=== PATIENT | female | born 1970 | race Caucasian/White ===

== ENCOUNTER → 2018-09-15 | Outpatient (CLI) | payer BC ==
[~2018-09-15] MED LIST: LVT.1T PO
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
--- NOTE | 2018-09-15 19:17 | Diagnostic Imaging Report ---
INDICATION: Routine screening. No prior mammograms are available for comparison. This is a baseline study. 2-D and 3-D bilateral screening mammography was performed with CAD. The current study was also evaluated with a Computer Aided Detection (CAD) system. Scattered fibroglandular densities are identified bilaterally. No mass or malignant-appearing microcalcifications are seen. Axillae are unremarkable. IMPRESSION: No mammographic features suspicious for malignancy are identified. ACR BI-RADS Category 1: Negative. Result letter will be mailed to the patient. Note: At least 10% of breast cancer is not imaged by mammography. Dictated by: Dictated on workstation # [id number]
== END ==
LOC: RAD 09:40
PROVIDERS: ATTEND Obstetrics & Gynecology
DX: Z12.31 Encounter for screening mammogram for malignant neoplasm of breast (principal); E80.6 Other disorders of bilirubin metabolism; Z90.49 Acquired absence of other specified parts of digestive tract; Z87.828 Personal history of other (healed) physical injury and trauma
CPT/HCPCS: 76705; 77067

== ENCOUNTER → 2018-09-15 | Outpatient (CLI) | payer BC | LOC: RAD 09:36 | PROVIDERS: ATTEND Nurse Practitioner Family | DX: E80.6 Other disorders of bilirubin metabolism (principal); Z87.828 Personal history of other (healed) physical injury and trauma; Z53.8 Procedure and treatment not carried out for other reasons ==

== ENCOUNTER 2018-10-26 11:26 | Outpatient (CLI) | payer BC ==
[~2018-10-26] VITALS: Ht 166.4 cm; Wt 85.7 kg
[2018-10-26 11:35] VITALS: BP 114/73
[2018-10-26 12:11] LABS: BASOPHILS % (AUTO) 1 % (0-10); EOSINOPHILS # (AUTO) 0.2 10^3/uL (0.0-0.3); EOSINOPHILS % (AUTO) 3 % (0-10); HEMATOCRIT 38 % (35-52); LYMPHOCYTES # (AUTO) 1.5 X 10^3 (1.0-4.0); LYMPHOCYTES % (AUTO) 23 % (12-44); MEAN CORPUSCULAR HEMOGLOBIN 30 PG (25-34); MEAN CORPUSCULAR HGB CONC 35 G/DL (32-36); MEAN CORPUSCULAR VOLUME 88 FL (80-99); MEAN PLATELET VOLUME 10.7 FL (7.4-10.4); MONOCYTES # (AUTO) 0.4 X 10^3 (0.0-1.0); MONOCYTES % (AUTO) 6 % (0-12); NEUTROPHILS # (AUTO) 4.6 X 10^3 (1.8-7.8); NEUTROPHILS % (AUTO) 67 % (42-75); PLATELET COUNT 271 10^3/uL (130-400); RED CELL DISTRIBUTION WIDTH 12.7 % (10.0-14.5); WHITE BLOOD COUNT 6.8 10^3/uL (4.3-11.0)
[2018-10-26] MEDS ORDERED: LEVO88TA54 PO (13:16)
[2018-10-26] MEDS ORDERED: METO-387 PO (13:16)
== END 2018-10-26 12:00 | disposition home or self-care (01) ==
LOC: PREOP 11:26
PROVIDERS: ATTEND Obstetrics & Gynecology
DX: Z01.818 Encounter for other preprocedural examination (principal); N39.3 Stress incontinence (female) (male); D64.9 Anemia, unspecified; N94.6 Dysmenorrhea, unspecified; N81.4 Uterovaginal prolapse, unspecified; R11.2 Nausea with vomiting, unspecified; Z11.2 Encounter for screening for other bacterial diseases
CPT/HCPCS: 36415; 85025; 86850; 86900; 86901; 87081

== ENCOUNTER → 2019-05-18 | Outpatient (CLI) | payer BC ==
[~2019-05-18] MED LIST changes: +DOCU-143 PO; +ESTR1TAB24 PO; +IBUP-1780 PO; +LEVO88TA54 PO; +METO-387 PO; +OXC5T PO; +oxycodone PO
--- NOTE | 2019-05-18 10:23 | Diagnostic Imaging Report ---
INDICATION: Chest pain. PA and lateral chest. FINDINGS: Heart size and pulmonary vascularity are normal. Lungs are clear. There are no effusions or pneumothoraces. IMPRESSION: Negative chest. Dictated by: Dictated on workstation # [id number]
== END ==
LOC: RAD 09:23
PROVIDERS: ATTEND Nurse Practitioner Family
DX: R07.9 Chest pain, unspecified (principal); Z87.891 Personal history of nicotine dependence
CPT/HCPCS: 71046

== ENCOUNTER 2019-05-25 10:00 | Outpatient (RCR) | payer BC ==
[~2019-05-25 10:00] MED LIST changes: -METO-387 PO; +MTP25TSR PO
== END 2019-08-23 | disposition home or self-care (01) ==
LOC: CARD 10:00
PROVIDERS: ATTEND Nurse Practitioner Family
DX: R07.9 Chest pain, unspecified (principal); R00.0 Tachycardia, unspecified
CPT/HCPCS: 93225; 93226

== ENCOUNTER → 2019-06-15 | Outpatient (CLI) | payer BC | LOC: CARD 13:03 | PROVIDERS: ATTEND Internal Medicine Cardiovascular Disease | DX: I47.1 Supraventricular tachycardia (principal); R00.2 Palpitations; R42 Dizziness and giddiness; R07.89 Other chest pain | CPT/HCPCS: 93306 ==

== ENCOUNTER → 2019-07-04 | Outpatient (CLI) | payer BC ==
[~2019-07-04] VITALS: Ht 165 cm; Wt 90.0 kg
[~2019-07-04] MED LIST changes: +CATHETER FLUSH 10 ML SYR IV PRN
[2019-07-04 09:59] VITALS: BP 105/75
--- NOTE | 2019-07-04 18:00 | STRESS TEST ---
DATE OF SERVICE: 07/04/2019 EXERCISE MYOVIEW STRESS TEST REFERRING PHYSICIAN: Felicita Lopez MD. Baseline heart rate is 59, baseline blood pressure 104/66. Baseline EKG is sinus rhythm with no ischemic changes. In summary, the patient was injected with 9.78 mCi of technetium-99 Myoview and the resting images were obtained. Then, the patient started exercising with a baseline heart rate, blood pressure and EKG mentioned above. The patient was able to exercise for 6 minutes on standard Memo protocol. With peak exercise level, blood pressure was 147/68. EKG was showing no significant ischemic changes. During recovery, heart rate and blood pressure returned to baseline. The resting and stress images were reviewed and compared in the short axis, horizontal long axis, and vertical long axis views. Review of the images showed good radiotracer uptake with no significant ischemia or infarction on SPECT images. On the gated images, the left ventricle appeared to be normal size with normal contractility. Calculated ejection fraction is 55%. CONCLUSION: 1. Good exercise tolerance for a total of 6 minutes on standard Memo protocol, 7.1 METs, achieving 87% of maximum expected heart rate. 2. Appropriate heart rate and blood pressure response to exercise returned to baseline during recovery. 3. No significant EKG changes with exercise. 4. No significant ischemia or infarction on SPECT images. 5. Normal left ventricular size with normal contractility. Calculated ejection fraction is 55%. Job ID: [id number] DocumentID: [id number] Dictated Date: 07/04/2019 15:34:46 Business Management Associate Date: 07/04/2019 18:00:07 Dictated By: KADY GOLDSTEIN MD
== END ==
LOC: CARD 08:44
PROVIDERS: ATTEND Internal Medicine Cardiovascular Disease
DX: R07.89 Other chest pain (principal); I47.1 Supraventricular tachycardia; R00.2 Palpitations; R42 Dizziness and giddiness
CPT/HCPCS: 78452; 93017

== ENCOUNTER 2020-06-18 10:42 | Emergency (ER) | payer BC ==
[~2020-06-18] VITALS: Ht 165 cm; Wt 90.7 kg
[~2020-06-18 10:42] MED LIST changes: +AMOX-358 PO; -CATHETER FLUSH 10 ML SYR IV PRN; +NAPR500T8 PO; +TRAM-42 PO
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
[2020-06-18 12:09] LABS: BASOPHILS % (AUTO) 1 % (0-10); EOSINOPHILS # (AUTO) 0.3 10^3/uL (0.0-0.3); EOSINOPHILS % (AUTO) 6 % (0-10); HEMATOCRIT 37 % (35-52); HEMOGLOBIN 12.2 g/dL (11.5-16.0); LYMPHOCYTES # (AUTO) 1.3 10^3/uL (1.0-4.0); LYMPHOCYTES % (AUTO) 29 % (12-44); MEAN CORPUSCULAR HEMOGLOBIN 30 pg (25-34); MEAN CORPUSCULAR HGB CONC 33 g/dL (32-36); MEAN CORPUSCULAR VOLUME 90 fL (80-99); MEAN PLATELET VOLUME 10.5 fL (9.0-12.2); MONOCYTES # (AUTO) 0.3 10^3/uL (0.0-1.0); MONOCYTES % (AUTO) 7 % (0-12); NEUTROPHILS # (AUTO) 2.7 10^3/uL (1.8-7.8); NEUTROPHILS % (AUTO) 58 % (42-75); PLATELET COUNT 209 10^3/uL (130-400); WHITE BLOOD COUNT 4.6 10^3/uL (4.3-11.0)
[2020-06-18 12:15] LABS: INR 1.1 (0.8-1.4); PROTHROMBIN TIME PATIENT 14.3 SEC (12.2-14.7)
[2020-06-18 12:19] LABS: ALBUMIN 3.6 GM/DL (3.2-4.5); CHLORIDE 108 MMOL/L (98-107); SODIUM 142 MMOL/L (135-145)
[2020-06-18 12:21] LABS: CALCIUM 8.5 MG/DL (8.5-10.1)
[2020-06-18 12:22] LABS: GLUCOSE 106 MG/DL (70-105); TOTAL PROTEIN 5.7 GM/DL (6.4-8.2)
[2020-06-18 12:23] LABS: BILIRUBIN,TOTAL 2.4 MG/DL (0.1-1.0); CARBON DIOXIDE 29 MMOL/L (21-32)
[2020-06-18 12:25] LABS: ALKALINE PHOSPHATASE 73 U/L (40-136); CREATININE SERUM 0.73 MG/DL (0.60-1.30); GFR ESTIMATED > 60
[2020-06-18 12:26] LABS: BUN/CREATININE RATIO 8
[2020-06-18 12:28] LABS: ALANINE AMINOTRANSFERASE 21 U/L (0-55); MAGNESIUM 2.1 MG/DL (1.6-2.4)
--- NOTE | 2020-06-18 13:20 | Diagnostic Imaging Report ---
INDICATION: Chest pain and headache. TIME OF EXAM: 1:00 PM. COMPARISON: 05/18/2019. FINDINGS: The heart size is normal. The pulmonary vascularity is unremarkable. The lungs are clear. No infiltrate, effusion, or pneumothorax is detected. IMPRESSION: No acute cardiopulmonary process is detected. Dictated by: Dictated on workstation # [id number]
[2020-06-18 13:56] VITALS: BP 116/97
== END 2020-06-18 13:56 | disposition home or self-care (01) ==
LOC: EDUNIT# 10:42 → ER 10:44
DX: R07.9 Chest pain, unspecified (principal); K21.9 Gastro-esophageal reflux disease without esophagitis; E03.9 Hypothyroidism, unspecified; Z20.822 Contact with and (suspected) exposure to COVID-19; Z88.6 Allergy status to analgesic agent; Z88.1 Allergy status to other antibiotic agents; Z87.891 Personal history of nicotine dependence; Z82.49 Family history of ischemic heart disease and other diseases of the circulatory system; Z83.3 Family history of diabetes mellitus; Z80.42 Family history of malignant neoplasm of prostate; Z79.890 Hormone replacement therapy
CPT/HCPCS: 71045; 80053; 83735; 83874; 84484; 85025; 85379; 85610; 85730; 87804; 93041; U0002; 36415; 87635; 93005

== ENCOUNTER → 2021-03-06 | Outpatient (CLI) | payer BC ==
--- NOTE | 2021-03-06 11:23 | Diagnostic Imaging Report ---
PROCEDURE: US Thyroid. TECHNIQUE: Multiple real-time grayscale images were obtained of the thyroid in various projections. INDICATION: Hypothyroidism The previous soft tissue ultrasound exam of the neck performed on 02/27/2016 noted that the thyroid gland had a mildly heterogeneous appearance. There is no discrete solid or cystic nodule visualized however. On this exam the thyroid gland is somewhat small with the right lobe measuring 3.8 x 1.5 x 1.2 cm and the left lobe estimated to 2.7 x 0.8 x 1.0 cm (normal gland size 4-5 x 2x2 cm or less). As on the prior exam. The texture of each lobe of the thyroid is heterogeneous. There is still no discrete solid or cystic mass identified however. IMPRESSION: 1. The thyroid gland is somewhat small and has a heterogeneous appearance. There is no discrete solid or cystic mass noted. 2. If further evaluation of thyroid function is desired, then a nuclear medicine thyroid scan with uptake would be recommended. Dictated by: Dictated on workstation # [id number]
== END ==
LOC: RAD 08:00
PROVIDERS: ATTEND Nurse Practitioner Family
DX: E03.9 Hypothyroidism, unspecified (principal); R13.10 Dysphagia, unspecified
CPT/HCPCS: 76536

== ENCOUNTER 2021-04-09 05:34 | Outpatient (RCR) | payer BC ==
[~2021-04-09] VITALS: Ht 165.1 cm; Wt 96.1 kg
== END 2021-04-09 09:15 | disposition home or self-care (01) ==
LOC: PREOP 05:34
PROVIDERS: ATTEND Surgery
DX: Z01.812 Encounter for preprocedural laboratory examination (principal); Z12.11 Encounter for screening for malignant neoplasm of colon; R13.10 Dysphagia, unspecified; Z20.822 Contact with and (suspected) exposure to COVID-19
CPT/HCPCS: 87635

== ENCOUNTER → 2021-04-13 | Day surgery (SDC) | payer BC ==
[~2021-04-13] VITALS: Ht 165.1 cm; Wt 96.1 kg
[~2021-04-13] MED LIST changes: +HURRICAINE EXT TUBE (BENZOCAINE) XX PRN; +LACTATED RINGERS 1,000 ML IV ONE; +LACTATED RINGERS 1,000 ML IV STA; +PANT40TA2 PO; +PROPOFOL INJECTION 50 ML IV ONE; +SUCR1TAB36 PO
--- OUTSIDE RECORDS SUMMARY | 2021-04-13 07:16 | XMS REPORT | CCD ---
Author Author Margaret Neal Organization Felicita Lopez MD, [facility] Address [facility] [place] [address] Phone Care Team Providers Care Collar Setter Overlock Name Role Phone Felicita Lopez PP Unavailable CCM Unavailable Summary Purpose Interface Exchange Insurance Providers Payer name Policy type / Coverage type Covered constitution party ID Effective Begin Date Effective End Date [facility] [id number] Unknown Family history Mother Diagnosis Age At Onset Hypertension Unknown Hyperlipidemia Unknown Brother Diagnosis Age At Onset Hyperlipidemia Unknown Hypertension Unknown Father Diagnosis Age At Onset Diabetes mellitus Type 2 Unknown Hypertension Unknown Hyperlipidemia Unknown Cancer Unknown Social History Social History Element Codes Description Effective Dates Marital status Unknown Merrel 09/04/2018 Number of children Unknown 3 09/04/2018 Employment Unknown 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 09/04/[address]: 7809233 Former smoker 02-28-2014 09/04/[address]: 231826904 Never drinks alcohol 2018 Allergies, Adverse Reactions, Alerts Substance Reaction Codes Entered Date Inactivated Date Status doxycycline hyclate rash Unknown 09/04/2018 No Inactive Date Active Problems Condition Codes Effective Dates Condition Status Hypothyroidism, unspecified ICD-10: E03.9 ICD-9: 244.9 09/04/2018 Active Cough ICD-10: R05 ICD-9: 786.2 12/15/2020 Active COVID-19 ICD-10: U07.1 ICD-9: 079.89 12/15/2020 Active Dysphagia, oral phase ICD-10: R13.11 ICD-9: 787.21 07/20/2019 Active Other specified hypothyroidism ICD-10: E03.8 ICD-9: 244.8 11/12/2020 Active Elevated liver enzymes ICD-10: R74.8 ICD-9: 790.5 11/05/2020 Active Rash and other nonspecific skin eruption ICD-10: R21 ICD-9: 782.1 09/04/2018 Active Chest pain made worse by breathing ICD-10: R07.1 ICD-9: 786.52 05/18/2019 Active Iliotibial band syndrome, right leg ICD-10: M76.31 ICD-9: 728.89 05/04/2019 Active Well adult health check ICD-10: Z00.00 ICD-9: V70.0 05/04/2019 Active Excessive and frequent menstruation with regular cycle ICD-10: N92.0 ICD-9: 626.2 09/04/2018 Active Unspecified jaundice ICD-10: R17 ICD-9: 277.4 09/04/2018 Active Hypothryroidism Unknown 09/04/2018 Active Melena ICD-10: K92.1 ICD-9: 578.1 09/04/2018 Active Medications Medication Codes Instructions Start Date Stop Date Status Fill Instructions Ventolin HFA 90 mcg/actuation aerosol inhaler RxNorm: 053523 Take 1-2 Puff(s) Inhalation Every 4 hrs as needed 12/15/2020 No Stop Date Active prednisone 20 mg tablet RxNorm: 713963 Take 1 Tablet(s) Oral tw o times a day 12/15/2020 12/19/2020 Inactive levothyroxine 88 mcg tablet RxNorm: 461503 Take 1 Tablet(s) Ora l every day 11/12/2020 11/06/2021 Active levothyroxine 100 mcg tablet RxNorm: 202003 Take 1 tablet by mo [place] once daily 05/12/2020 02/19/2021 Inactive levothyroxine 100 mcg tablet RxNorm: 550031 1 Tablet(s) Oral ev janie day 01/07/2020 05/06/2020 Inactive ketoconazole 2 % topical cream RxNorm: 428952 1 Applica tion Topical two times a day 12/10/2019 No Stop Date Active levothyroxine 100 mcg tablet RxNorm: 203096 1 Tablet(s) Oral ev janie day 05/18/2019 11/14/2019 Inactive prednisone 20 mg tablet RxNorm: 006324 2 Tablet(s) Oral every day 1 07/19/2018 05/23/2019 Inactive betamethasone, augmented 0.05 % topical cream RxNorm: 618731 1 Application TOP BID 09/04/2018 09/17/2018 Inactive Kenalog 40 mg/mL suspension for injection RxNorm: 5627867 Millil iter(s) Inj 09/04/2018 09/04/2018 Inactive metoprolol succinate ER 25 mg tablet,extended release 24 hr RxNorm: 683243 1 Tablet(s) PO daily as needed 09/04/2018 Active Advil 200 mg tablet RxNorm: 233354 1 Tablet(s) PO BID 09/04/2018 Active levothyroxine 88 mcg tablet RxNorm: 809019 1 Tablet(s) PO daily 05/17/2019 Inactive Medication Administered Medication Codes Instructions Start Date Status Kenalog 40 mg/mL suspension for injection RxNorm: 9245339 Millilite r 09/04/2018 No longer Active Immunizations Vaccine Codes Date Status Covid-19 CVX: 213 11/07/2020 Results Observation Observation Code Item Item Code Result Date S ervice Location Cbc With Differential Ord2 WBC 4.11 K/ul 02/21/20 21 Unknown Cbc With Differential Ord2 RBC 4.54 M/ul 02/21/20 21 Unknown Cbc With Differential Ord2 HGB 13.3 g/dl 02/21/20 21 Unknown Cbc With Differential Ord2 Neut% 53.5 % 02/21/20 21 Unknown Cbc With Differential Ord2 HCT 41.1 % 02/21/20 21 Unknown Cbc With Differential Ord2 Lymph% 32.6 % 02/21/20 21 Unknown Cbc With Differential Ord2 MCV 90.5 fl 02/21/20 21 Unknown Cbc With Differential Ord2 Callahan% 6.1 % 02/21/20 21 Unknown Cbc With Differential Ord2 MCH 29.3 pg 02/21/20 21 Unknown Cbc With Differential Ord2 Eos% 7.3 % 02/21/20 21 Unknown Cbc With Differential Ord2 MCHC 32.4 pg 02/21/20 21 Unknown Cbc With Differential Ord2 Baso% 0.5 % 02/21/20 21 Unknown Cbc With Differential Ord2 PLT 111 K/ul 02/21/20 21 Unknown Cbc With Differential Ord2 Neut ABS# 2.20 K/ul 02/21/20 21 Unknown Cbc With Differential Ord2 RDW 12.9 % 02/21/20 21 Unknown Cbc With Differential Ord2 Lymph ABS# 1.34 K/ul 021 Unknown Cbc With Differential Ord2 Callahan ABS# 0.3 K/ul 02/21/20 21 Unknown Cbc With Differential Ord2 Eos ABS# 0.3 K/ul 02/21/20 21 Unknown Cbc With Differential Ord2 Baso ABS# 0.0 K/ul 02/21/20 21 Unknown Lipid Ord30 CHOL 184 mg/dL 02/20/2021 Unknown Lipid Ord30 HDL 49.0 mg/dl 02/20/2021 Unknown Lipid Ord30 TRIG 90 mg/dL 02/20/2021 Unknown Lipid Ord30 LDL 117 mg/dL 02/20/2021 Unknown Lipid Ord30 C/HDL 3.8 Ratio 02/20/2021 Unknown Comp Metabolic Vlw341 NA 139 mEq/L 02/20/2021 Unkn own Comp Metabolic Cgm661 K 4.1 mEq/L 02/20/2021 Unkn own Comp Metabolic Ron564 CL 108 mEq/L 02/20/2021 Unkn own Comp Metabolic Jso764 CO2 18.0 mEq/L 02/20/2021 Unk nown Comp Metabolic Usw412 ANION GAP 17 02/20/2021 Unkn own Comp Metabolic Htt471 GLUCOSE 108 mg/dL 02/20/2021 Unkn own Comp Metabolic Tnk474 Creat 0.7 mg/dL 02/20/2021 Unkn own Comp Metabolic Nvt431 eGFR 102 ml/min/1.73m2 021 Unknown Comp Metabolic Uec543 BUN 10 mg/dL 02/20/2021 Unkn own Comp Metabolic Acu039 B/C Ratio 15.4 Ratio 02/20/2021 Unk nown Comp Metabolic Huv403 CALCIUM 8.9 mg/dL 02/20/2021 Unkn own Comp Metabolic Wgk145 ALK PHOS 87 U/L 02/20/2021 Unkn own Comp Metabolic Jup964 AST(SGOT) 21 U/L 02/20/2021 Unkn own Comp Metabolic Hqf994 ALT(SGPT) 22 U/L 02/20/2021 Unkn own Comp Metabolic Pwx433 BILI T 1.5 mg/dL 02/20/2021 Unkn own Comp Metabolic Nvn885 ALBUMIN 3.9 g/dL 02/20/2021 Unkn own Comp Metabolic Pek518 TPRO 6.1 g/dL 02/20/2021 Unkn own Comp Metabolic Lgn715 GLOB 2.3 g/dL 02/20/2021 Unkn own Comp Metabolic Kwa859 A/G Ratio 1.7 Ratio 02/20/2021 Unkn own Comp Metabolic Xdw786 Osmo 277 mOsmo 02/20/2021 Unkn own Tsh Ord6 TSH (3rd IS) 0.35 uIU/mL 02/20/2021 Unkn own Free T4 Oxa298 FREE T4 1.04 ng/dL 02/20/2021 Unknown Cbc With Differential Ord2 WBC 5.32 K/ul 11/11/19 21 Unknown Cbc With Differential Ord2 RBC 4.48 M/ul 11/11/19 21 Unknown Cbc With Differential Ord2 HGB 13.4 g/dl 11/11/19 21 Unknown Cbc With Differential Ord2 Neut% 47.8 % 11/11/19 21 Unknown Cbc With Differential Ord2 HCT 39.2 % 11/11/19 21 Unknown Cbc With Differential Ord2 MCV 87.5 fl 11/11/19 21 Unknown Cbc With Differential Ord2 Lymph% 37.0 % 11/11/19 21 Unknown Cbc With Differential Ord2 Callahan% 10.5 % 11/11/19 21 Unknown Cbc With Differential Ord2 MCH 29.9 pg 11/11/19 21 Unknown Cbc With Differential Ord2 MCHC 34.2 pg 11/11/19 21 Unknown Cbc With Differential Ord2 Eos% 3.9 % 11/11/19 21 Unknown Cbc With Differential Ord2 Baso% 0.8 % 11/11/19 21 Unknown Cbc With Differential Ord2 PLT 223 K/ul 11/11/19 21 Unknown Cbc With Differential Ord2 RDW 12.8 % 11/11/19 21 Unknown Cbc With Differential Ord2 Neut ABS# 2.54 K/ul 11/11/19 21 Unknown Cbc With Differential Ord2 Lymph ABS# 1.97 K/ul 021 Unknown Cbc With Differential Ord2 [place]ahan ABS# 0.6 K/ul 11/11/19 21 Unknown Cbc With Differential Ord2 Eos ABS# 0.2 K/ul 11/11/19 21 Unknown Cbc With Differential Ord2 Baso ABS# 0.0 K/ul 11/11/19 21 Unknown Tsh Ord6 TSH (3rd IS) 0.02 uIU/mL 11/10/2020 Unkn own Comp Metabolic Kdy995 NA 137 mEq/L 11/10/2020 Unkn own Comp Metabolic Cfx360 K 3.8 mEq/L 11/10/2020 Unkn own Comp Metabolic Leo326 CL 102 mEq/L 11/10/2020 Unkn own Comp Metabolic Goy795 CO2 30.0 mEq/L 11/10/2020 Unk nown Comp Metabolic Buv342 ANION GAP 9 11/10/2020 Unkn own Comp Metabolic Qya561 GLUCOSE 105 mg/dL 11/10/2020 Unkn own Comp Metabolic Rzy750 Creat 0.7 mg/dL 11/10/2020 Unkn own Comp Metabolic Guz730 eGFR 93 ml/min/1.73m2 11/11/19 21 Unknown Comp Metabolic Ljx848 BUN 12 mg/dL 11/10/2020 Unkn own Comp Metabolic Gud943 B/C Ratio 16.9 Ratio 11/10/2020 Unk nown Comp Metabolic Gkz520 CALCIUM 8.7 mg/dL 11/10/2020 Unkn own Comp Metabolic Smf309 ALK PHOS 80 U/L 11/10/2020 Unkn own Comp Metabolic Kcy714 AST(SGOT) 24 U/L 11/10/2020 Unkn own Comp Metabolic Rln167 ALT(SGPT) 29 U/L 11/10/2020 Unkn own Comp Metabolic Sra515 BILI T 1.4 mg/dL 11/10/2020 Unkn own Comp Metabolic Xic971 ALBUMIN 3.8 g/dL 11/10/2020 Unkn own Comp Metabolic Tyz558 TPRO 6.0 g/dL 11/10/2020 Unkn own Comp Metabolic Dbb962 GLOB 2.2 g/dL 11/10/2020 Unkn own Comp Metabolic Qoy664 A/G Ratio 1.7 Ratio 11/10/2020 Unkn own Comp Metabolic Kkg733 Osmo 274 mOsmo 11/10/2020 Unkn own Free T4 Foz433 FREE T4 1.31 ng/dL 11/10/2020 Unknown Lipid Ord30 CHOL 185 mg/dL 05/04/2019 Unknown Lipid Ord30 HDL 63.0 mg/dl 05/04/2019 Unknown Lipid Ord30 TRIG 100 mg/dL 05/04/2019 Unknown Lipid Ord30 LDL 102 mg/dL 05/04/2019 Unknown Lipid Ord30 C/HDL 2.9 Ratio 05/04/2019 Unknown Cbc With Differential Ord2 WBC 4.91 K/ul 05/04/20 19 Unknown Cbc With Differential Ord2 RBC 4.09 M/ul 05/04/20 19 Unknown Cbc With Differential Ord2 HGB 12.3 g/dl 05/04/20 19 Unknown Cbc With Differential Ord2 HCT 36.6 % 05/04/20 19 Unknown Cbc With Differential Ord2 Neut% 63.3 % 05/04/20 19 Unknown Cbc With Differential Ord2 Lymph% 25.9 % 05/04/20 19 Unknown Cbc With Differential Ord2 MCV 89.5 fl 05/04/20 19 Unknown Cbc With Differential Ord2 MCH 30.1 pg 05/04/20 19 Unknown Cbc With Differential Ord2 Callahan% 5.5 % 05/04/20 19 Unknown Cbc With Differential Ord2 MCHC 33.6 pg 05/04/20 19 Unknown Cbc With Differential Ord2 Eos% 4.7 % 05/04/20 19 Unknown Cbc With Differential Ord2 PLT 220 K/ul 05/04/20 19 Unknown Cbc With Differential Ord2 Baso% 0.6 % 05/04/20 19 Unknown Cbc With Differential Ord2 RDW 13.1 % 05/04/20 19 Unknown Cbc With Differential Ord2 Neut ABS# 3.11 K/ul 05/04/20 19 Unknown Cbc With Differential Ord2 Lymph ABS# 1.27 K/ul 019 Unknown Cbc With Differential Ord2 Callahan ABS# 0.3 K/ul 05/04/20 19 Unknown Cbc With Differential Ord2 Eos ABS# 0.2 K/ul 05/04/20 19 Unknown Cbc With Differential Ord2 Baso ABS# 0.0 K/ul 05/04/20 19 Unknown Tsh Ord6 TSH (3rd IS) 6.35 uIU/mL 05/04/2019 Unkn own Comp Metabolic Ckn454 NA 140 mEq/L 05/04/2019 Unkn own Comp Metabolic Vmz248 K 3.6 mEq/L 05/04/2019 Unkn own Comp Metabolic Sfh682 CL 105 mEq/L 05/04/2019 Unkn own Comp Metabolic Tyv412 CO2 27.0 mEq/L 05/04/2019 Unk nown Comp Metabolic Cna423 ANION GAP 12 05/04/2019 Unkn own Comp Metabolic Yns537 GLUCOSE 97 mg/dL 05/04/2019 Unkn own Comp Metabolic Eou620 Creat 0.7 mg/dL 05/04/2019 Unkn own Comp Metabolic Zeg851 eGFR 90 ml/min/1.73m2 05/04/20 19 Unknown Comp Metabolic Wsw070 BUN 9 mg/dL 05/04/2019 Unkn own Comp Metabolic Qig807 B/C Ratio 12.3 Ratio 05/04/2019 Unk nown Comp Metabolic Fgw938 CALCIUM 8.6 mg/dL 05/04/2019 Unkn own Comp Metabolic Jcg434 ALK PHOS 67 U/L 05/04/2019 Unkn own Comp Metabolic Iqg614 AST(SGOT) 14 U/L 05/04/2019 Unkn own Comp Metabolic Hdd226 ALT(SGPT) 13 U/L 05/04/2019 Unkn own Comp Metabolic Eyf270 BILI T 1.4 mg/dL 05/04/2019 Unkn own Comp Metabolic Hsz966 ALBUMIN 3.7 g/dL 05/04/2019 Unkn own Comp Metabolic Tge052 TPRO 5.9 g/dL 05/04/2019 Unkn own Comp Metabolic Jnw606 GLOB 2.2 g/dL 05/04/2019 Unkn own Comp Metabolic Xam953 A/G Ratio 1.7 Ratio 05/04/2019 Unkn own Comp Metabolic Tuc896 Osmo 278 mOsmo 05/04/2019 Unkn own Free T4 Jlf053 FREE T4 0.77 ng/dL 05/04/2019 Unknown Procedures Procedure Codes Date SARSCOV CORONAVIRUS AG IA CPT-4: 56003 12/15/2020 TRIAMCINOLONE ACET INJ NOS 10 mg CPT-4: J3301 019 Vital Signs Date Vital 02/20/2021 Blood Pressure 1: 128/80 Code: 8480-6 BMI: 34.6 Code: 97695-3 Heart Rate 1: 76 bpm Height: 5'5" Code: 8302-2 SpO2: 96% Temperature: 3 6.4 (C) / 97.6 (F) Weight: 208 lbs Code: 70310-6 12/15/2020 Height: Code: 8302-2 Weight: Code: 294 63-7 11/12/2020 Blood Pressure 1: 128/70 Code: 8480-6 BMI: 33.9 Code: 34821-0 Heart Rate 1: 83 bpm Height: 5'5" Code: 8302-2 SpO2: 100% Temperature: 3 6.2 (C) / 97.2 (F) Weight: 204 lbs Code: 84866-2 12/10/2019 Blood Pressure 1: 130/80 Code: 8480-6 BMI: 33.3 Code: 34384-4 Heart Rate 1: 76 bpm Height: 5'5" Code: 8302-2 SpO2: 99% Temperature: 3 6.5 (C) / 97.7 (F) Weight: 200 lbs Code: 89269-0 07/20/2019 Blood Pressure 1: 116/70 Code: 8480-6 Heart Rate 1: 78 bpm Height: Code: 8302-2 SpO2: 98% Weight: Code: 63775-6 05/18/2019 Blood Pressure 1: 122/80 Code: 8480-6 BMI: 33.4 Code: 14632-5 Heart Rate 1: 76 bpm Height: 5'5" Code: 8302-2 SpO2: 98% Weight: 201 lb s Code: 58891-0 05/04/2019 Blood Pressure 1: 108/60 Code: 8480-6 BMI: 33.4 Code: 19919-4 Heart Rate 1: 80 bpm Height: 5'5" Code: 8302-2 SpO2: 99% Weight: 201 lb s Code: 70388-2 10/30/2018 Blood Pressure 1: 128/70 Code: 8480-6 BMI: 31.1 Code: 02368-1 Heart Rate 1: 74 bpm Height: 5'6" Code: 8302-2 Respiratory Rate: bpm SpO2: 96% Weight: 190 lbs Code: 33323-3 09/04/2018 Blood Pressure 1: 124/86 Code: 8480-6 BMI: 31.1 Code: 22732-5 Heart Rate 1: 88 bpm Height: 5'6" Code: 8302-2 SpO2: 97% Weight: 190 lb s Code: 90410-9 Functional Status No Functional Status data Reason For Visit Reason For Visit Effective Dates Notes hypothyroid 02/20/2021 cough 12/15/2020 hypothyroid 11/12/2020 rash 12/10/2019 dysphagia 07/20/2019 chest pain/pressure 05/18/2019 joint complaint 05/04/2019 menstrual irregularity 10/30/2018 menstrual irregularity 09/04/2018 Encounters Encounter Performer Location Codes Date ([id number]) 07662 EST. PATIENT, LEVEL III Diagnosis: Hypothyroidism, unspecified[ICD10: E03.9] [facility] CPT-4: 24002 02/20/2021 [id number]) 82621 EST. PATIENT, LEVEL III Diagnosis: Cough[ICD10: R05] Diagnosis: COVID-19[ICD10: U07.1] [facility] CPT -4: 47575 12/15/2020 ([id number]) 41267 EST. PATIENT, LEVEL III Diagnosis: Dysphagia, oral phase[ICD10: R13.11] Diagnosis: Other specified hypothyroidism[ICD10: E03.8] Neida Lopez MD, [facility] CPT-4: 88329 11/12/2020 12128 EST. PATIENT, LEVEL III Diagnosis: Rash and other nonspecific skin eruption[ICD10: R21] Neida Lopez MD, [facility] CPT-4: 42126 12/10/2019 ([id number]) 44041 EST. PATIENT, LEVEL III Diagnosis: Dysphagia, oral phase[ICD10: R13.11] Flores Lopez MD, [facility] CPT-4: 36266 07/20/2019 ([id number]) 25499 EST. PATIENT, LEVEL IV Diagnosis: Hypothyroidism, unspecified[ICD10: E03.9] Diagnosis: Chest pain made worse by breathing[ICD10: R07.1] Flores Lopez MD, [facility] CPT-4: 50038 05/18/2019 ([id number]) PREV VISIT EST AGE 40-64 Diagnosis: Well adult health check[ICD10: Z00.00] Diagnosis: Iliotibial band syndrome, right leg[ICD10: M76.31] Flores Lopez MD, [facility] CPT-4: 75013 05/04/2019 ([id number]) 31822 EST. PATIENT, LEVEL III Diagnosis: Excessive and frequent menstruation with regular cycle[ICD10: N92.0] Diagnosis: Hypothyroidism, unspecified[ICD10: E03.9] Diagnosis: Unspecified jaundice[ICD10: R17] Flores suarez MD, [facility] CPT-4: 54058 10/30/2018 OFFICE VISIT, NEW - LEVEL 4 Diagnosis: Hypothyroidism, unspecified[ICD10: E03.9] Diagnosis: Unspecified jaundice[ICD10: R17] Diagnosis: Excessive and frequent menstruation with regular cycle[ICD10: N92.0] Diagnosis: Melena[ICD10: K92.1] Diagnosis: Rash and other nonspecific skin eruption[ICD10: R21] Flores Lopez MD, [facility] CPT-4: 51148 09/04/2018 Plan of Care Planned Activity Notes Codes Status Date Visit Plan: Hypothyroidism - pt with chr onic hypothyroidism, continue with current medication, will monitor pt for signs or symptoms of lack of adequate supplementation. Pt is to continue with current dose of medication unless directed otherwise. Check labs at regular intervals q 3 months or q 6 months based on previous levels of control. Schedule thyroid ultrasound for evaluation Thyroid US- No PA needed. Ref number [id number] 02/20/2021 Appointment: Flores Neal WPtel: [phone] [place] (15 min) Moderate 02/20/2021 Patient Education: Patient Medication Summary Completed 02/20/2021 Visit Plan: COVID-19 positive Discussed treatment with patient - pt to start on Vitamin C 500mg daily Zinc 50mg daily Pepcid 20mg twice daily RX for albuterol inhaler or neb to be sent out for patient. PT to call us to let us know if symptoms do not improve or if they worsen. 12/15/2020 Appointment: Flores Neal WPtel: [address] [place], [place] [phone] Telehealth 12/15/2020 Patient Education: Patient Medication Summary Completed 12/15/2020 Visit Plan: Hypothyroidism - pt with chr onic hypothyroidism, continue with current medication, will monitor pt for signs or symptoms of lack of adequate supplementation. Pt is to continue with current dose of medication unless directed otherwise. Check labs at regular intervals q 3 months or q 6 months based on previous levels of control. dysphagia - will order thyroid US and treat/refer as indicated 11/12/2020 Appointment: Neida Trujillo WPtel[facility] [place] (30 min) Complex 11/12/2020 Patient Education: Patient Medication Summary Completed 11/12/2020 Patient Education: Patient Medication Summary Completed 11/05/2020 Appointment: Neida Trujillo WPtel: [facility] [facility] 04/17/2020 Appointment: Neida Trujillo WPtel: [facility] [place] (30 min) Complex 01/10/2020 Visit Plan: Rash - intermittent and ongo ing - The patient was instructed in appropriate wound care. The patient was instructed to use the ointment as per RX. The patient is to call for any change in symptoms, increase in size of the lesion, increase in pain, worsening redness, warmth, discharge. 12/10/2019 Appointment: Neida Trujillo WPtel: [phone] [facility] (30 min) Complex 12/10/2019 Patient Education: Patient Medication Summary Completed 12/10/2019 Visit Plan: Dysphagia- start PPI daily- refer for EGD 07/20/2019 Appointment: Flores Neal WPtel: [phone] [phone] (30 min) Complex 07/20/2019 Patient Education: Patient Medication Summary Completed 07/20/2019 Referral: Chantell Sherwood Referral Completed 01/2020 Visit Plan: Hypothyroidism - pt with chr onic hypothyroidism, continue with current medication, will monitor pt for signs or symptoms of lack of adequate supplementation. Pt is to continue with current dose of medication unless directed otherwise. Check labs at regular intervals q 3 months or q 6 months based on previous levels of control. Chest pain -history of smoking -chest xray today -rx for short burst of prednisone -will also set up holter monitor to evaluate heart rate/rhythm during episodes and refer to cardiology. 05/18/2019 Appointment: Flores Neal WPtel: [phone] [phone] (15 min) Moderate 05/18/2019 Patient Education: Patient Medication Summary Completed 05/18/2019 Visit Plan: Well Adult - pt was counsele d about diet, exercise, and encouraged to follow a heart healthy diet and increase activity level. The patient was instructed to RTC yearly for well adult exams and PRN for acute illnesses. The pt was also instructed to have yearly labs for check of cholesterol, thyroid, chem panel, CBC, and renal functioning. Hypothyroidism - pt with chronic hypothyroidism, continue with current medication, will monitor pt for signs or symptoms of lack of adequate supplementation. Pt is to continue with current dose of medication unless directed otherwise. Check labs at regular intervals q 3 months or q 6 months based on previous levels of control. Iliotibial band syndrome- recommended use of anti-inflammatories and pt given handout on Iliotibial band exercises. 05/04/2019 Appointment: Flores Neal WPtel: [phone] [phone] [place] (30 min) Complex 05/04/2019 Patient Education: Patient Medication Summary Completed 05/04/2019 Patient Education: .Amazing charts lliotibial Band Rehabilitatio n exercises Completed 05/04/2019 Visit Plan: Heavy periods -patient to [facility] hysterectomy with Dr Talbot Elevated billirubin -liver ultrasound is negative -continue to monitor labs Hypothyroidism -have recent labs faxed to our office 10/30/2018 Appointment: Flores Neal WPtel: [phone] [phone] [place] (30 min) Complex 10/30/2018 Patient Education: Patient Medication Summary Completed 10/30/2018 Visit Plan: Hypothyroidism - pt with chr onic hypothyroidism, continue with current medication, will monitor pt to signs or symptoms of lack of adequate supplementation. Pt is to continue with current dose of medication unless directed otherwise. Check labs at regular intervals q 3 months or q 6 months based on previous levels of control. Elevated bilirubin -schedule liver sono Melena -hydrocortisone suppositories -refer for scope if bleeding continues Rash -kenalog injection -rx for betamethasone -call if rash does not resolve Heavy periods -intolerant to control -refer to Dr Talbot for evaluation 09/04/2018 Appointment: Flores Neal WPtel: [phone] [place] New Patient 09/04/2018 Patient Education: Patient Medication Summary Completed 09/04/2018 Referral: Chantell Sherwood Referral Appointment Requ sebastian Galindo Comment . Hypothyroidism - pt with chronic hypot hyroidism, continue with current medication, will monitor pt for signs or symptoms of lack of adequate supplementation. Pt is to continue with current dose of medication unless directed otherwise. Check labs at regular intervals q 3 months or q 6 months based on previous levels of control. Schedule thyroid ultrasound for evaluation Thyroid US- No PA needed. Ref number; [id number] . COVID-19 positive Discussed treatment with patient - pt to start on Vitamin C 500mg daily Zinc 50mg daily Pepcid 20mg twice daily RX for albuterol inhaler or neb to be sent out for patient. PT to call us to let us know if symptoms do not improve or if they worsen. . Hypothyroidism - pt with chronic hypot hyroidism, continue with current medication, will monitor pt for signs or symptoms of lack of adequate supplementation. Pt is to continue with current dose of medication unless directed otherwise. Check labs at regular intervals q 3 months or q 6 months based on previous levels of control. dysphagia - will order thyroid US and treat/refer as indicated . Rash - intermittent and ongoing - The patient was instructed in appropriate wound care. The patient was instructed to use the ointment as per RX. The patient is to call for any change in symptoms, increase in size of the lesion, increase in pain, worsening redness, warmth, discharge. LATE MORNING OR EARLY AFTERNOON -DR CARLOTTA DAVIDSON OTC DAILY . Dysphagia- start PPI daily- refer for EGD . Hypothyroidism - pt with chronic hypot hyroidism, continue with current medication, will monitor pt for signs or symptoms of lack of adequate supplementation. Pt is to continue with current dose of medication unless directed otherwise. Check labs at regular intervals q 3 months or q 6 months based on previous levels of control. Chest pain -history of smoking -chest xray today -rx for short burst of prednisone -will also set up holter monitor to evaluate heart rate/rhythm during episodes and refer to cardiology. . Well Adult - pt was counseled about di et, exercise, and encouraged to follow a heart healthy diet and increase activity level. The patient was instructed to RTC yearly for well adult exams and PRN for acute illnesses. The pt was also instructed to have yearly labs for check of cholesterol, thyroid, chem panel, CBC, and renal functioning. Hypothyroidism - pt with chronic hypothyroidism, continue with current medication, will monitor pt for signs or symptoms of lack of adequate supplementation. Pt is to continue with current dose of medication unless directed otherwise. Check labs at regular intervals q 3 months or q 6 months based on previous levels of control. Iliotibial band syndrome- recommended use of anti-inflammatories and pt given handout on Iliotibial band exercises. RECHECK LIVER ENZYMES IN DECEMBER . Heavy periods -patient to have hystere ctomy with Dr Talbot Elevated billirubin -liver ultrasound is negative -continue to monitor labs Hypothyroidism -have recent labs faxed to our office ULTRASOUND OF LIVER APPOINTMENT WITH DR TALBOT -MORNING MORNING ANY TIME OR LATE MORNING AROUND 10:00 KENALOG INJECTION FOR RASH LEFT ARM PREPARATION H SUPPOSITORIES JORGE L IF BLEEDING PERSISTS AND WE WILL REFER YOU FOR A COLONOSCOPY . Hypothyroidism - pt with chronic hypot hyroidism, continue with current medication, will monitor pt to signs or symptoms of lack of adequate supplementation. Pt is to continue with current dose of medication unless directed otherwise. Check labs at regular intervals q 3 months or q 6 months based on previous levels of control. Elevated bilirubin -schedule liver sono Melena -hydrocortisone suppositories -refer for scope if bleeding continues Rash -kenalog injection -rx for betamethasone -call if rash does not resolve Heavy periods -intolerant to control -refer to Dr Talbot for evaluation Medical Equipment No Medical Equipment data Health Concerns Section Health Concerns data not found Goals Section Goals data not found Interventions Section Interventions data not found Health Status Evaluations/Outcomes Section Health Status Evaluations/Outcomes data not found Advance Directives No Advance Directive data
--- OUTSIDE RECORDS SUMMARY | 2021-04-13 07:16 | XMS REPORT | CCD ---
Author Author Margaret Neal Organization Felicita Lopez MD, [facility] Address [facility] [place] [address] Phone Care Team Providers Care Cab Worker Name Role Phone Felicita Lopez PP Unavailable CCM Unavailable Summary Purpose Interface Exchange Insurance Providers Payer name Policy type / Coverage type Covered constitution party ID Effective Begin Date Effective End Date [place] [facility] [place] [id number] Unknown Family history Mother Diagnosis Age At Onset Hypertension Unknown Hyperlipidemia Unknown Brother Diagnosis Age At Onset Hyperlipidemia Unknown Hypertension Unknown Father Diagnosis Age At Onset Diabetes mellitus Type 2 Unknown Hypertension Unknown Hyperlipidemia Unknown Cancer Unknown Social History Social History Element Codes Description Effective Dates Marital status Unknown Merrel 09/04/2018 Number of children Unknown 3 09/04/2018 Employment Unknown 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 Former smoker 02-28-2014 09/04/[address]: 651394220 Never drinks alcohol 2018 Allergies, Adverse Reactions, [...] Ventolin HFA 90 mcg/actuation aerosol inhaler RxNorm: 964302 Take 1-2 Puff(s) Inhalation Every 4 hrs as needed 12/15/2020 No Stop Date Active prednisone 20 mg tablet RxNorm: 446606 Take 1 Tablet(s) Oral tw o times a day 12/15/2020 12/19/2020 Inactive levothyroxine 88 mcg tablet RxNorm: 268907 Take 1 Tablet(s) Ora l every day 11/12/2020 11/06/2021 Active levothyroxine 100 mcg tablet RxNorm: 939503 Take 1 tablet by mo [facility] once daily 05/12/2020 02/19/2021 Inactive levothyroxine 100 mcg tablet RxNorm: 953004 1 Tablet(s) Oral ev janie day 01/07/2020 05/06/2020 Inactive ketoconazole 2 % topical cream RxNorm: 934455 1 Applica tion Topical two times a day 12/10/2019 No Stop Date Active levothyroxine 100 mcg tablet RxNorm: 877977 1 Tablet(s) Oral ev janie day 05/18/2019 11/14/2019 Inactive prednisone 20 mg tablet RxNorm: 108897 2 Tablet(s) Oral every day 1 07/19/2018 05/23/2019 Inactive betamethasone, augmented 0.05 % topical cream RxNorm: 584581 1 Application TOP BID 09/04/2018 09/17/2018 Inactive Kenalog 40 mg/mL suspension for injection RxNorm: 2564941 Millil iter(s) Inj 09/04/2018 09/04/2018 Inactive metoprolol succinate ER 25 mg tablet,extended release 24 hr RxNorm: 774609 1 Tablet(s) PO daily as needed 09/04/2018 Active Advil 200 mg tablet RxNorm: 670394 1 Tablet(s) PO BID 09/04/2018 Active levothyroxine 88 mcg tablet RxNorm: 903735 1 Tablet(s) PO daily 05/17/2019 Inactive Medication Administered Medication Codes Instructions Start Date Status Kenalog 40 mg/mL suspension for injection RxNorm: 1418700 Millilite r 09/04/2018 No longer Active Immunizations [...] 02/21/20 21 Unknown Cbc With Differential Ord2 Desha% 6.1 % 02/21/20 21 Unknown Cbc With [...] K/ul 021 Unknown Cbc With Differential Ord2 Desha ABS# 0.3 K/ul 02/21/20 21 Unknown Cbc [...] C/HDL 3.8 Ratio 02/20/2021 Unknown Comp Metabolic Ktq734 NA 139 mEq/L 02/20/2021 Unkn own Comp Metabolic Uxa131 K 4.1 mEq/L 02/20/2021 Unkn own Comp Metabolic Epg187 CL 108 mEq/L 02/20/2021 Unkn own Comp Metabolic Sjk465 CO2 18.0 mEq/L 02/20/2021 Unk nown Comp Metabolic Voq065 ANION GAP 17 02/20/2021 Unkn own Comp Metabolic Wlr663 GLUCOSE 108 mg/dL 02/20/2021 Unkn own Comp Metabolic Wxs097 Creat 0.7 mg/dL 02/20/2021 Unkn own Comp Metabolic Uft125 eGFR 102 ml/min/1.73m2 021 Unknown Comp Metabolic Xdi030 BUN 10 mg/dL 02/20/2021 Unkn own Comp Metabolic Rfq266 B/C Ratio 15.4 Ratio 02/20/2021 Unk nown Comp Metabolic Azr083 CALCIUM 8.9 mg/dL 02/20/2021 Unkn own Comp Metabolic Cbb320 ALK PHOS 87 U/L 02/20/2021 Unkn own Comp Metabolic Pqv119 AST(SGOT) 21 U/L 02/20/2021 Unkn own Comp Metabolic Xoc419 ALT(SGPT) 22 U/L 02/20/2021 Unkn own Comp Metabolic Vqy740 BILI T 1.5 mg/dL 02/20/2021 Unkn own Comp Metabolic Ddn718 ALBUMIN 3.9 g/dL 02/20/2021 Unkn own Comp Metabolic Lyu189 TPRO 6.1 g/dL 02/20/2021 Unkn own Comp Metabolic Rhq865 GLOB 2.3 g/dL 02/20/2021 Unkn own Comp Metabolic Uok228 A/G Ratio 1.7 Ratio 02/20/2021 Unkn own Comp Metabolic Ewy830 Osmo 277 mOsmo 02/20/2021 Unkn own Tsh Ord6 TSH (3rd IS) 0.35 uIU/mL 02/20/2021 Unkn own Free T4 Ura083 FREE T4 1.04 ng/dL 02/20/2021 Unknown Cbc [...] 11/11/19 21 Unknown Cbc With Differential Ord2 Desha% 10.5 % 11/11/19 21 Unknown Cbc With [...] K/ul 021 Unknown Cbc With Differential Ord2 Desha ABS# 0.6 K/ul 11/11/19 21 Unknown Cbc With Differential Ord2 Eos ABS# 0.2 K/ul 11/11/19 21 Unknown Cbc With Differential Ord2 Baso ABS# 0.0 K/ul 11/11/19 21 Unknown Tsh Ord6 TSH (3rd IS) 0.02 uIU/mL 11/10/2020 Unkn own Comp Metabolic Gjt000 NA 137 mEq/L 11/10/2020 Unkn own Comp Metabolic Lpc074 K 3.8 mEq/L 11/10/2020 Unkn own Comp Metabolic Dyn185 CL 102 mEq/L 11/10/2020 Unkn own Comp Metabolic Dnz953 CO2 30.0 mEq/L 11/10/2020 Unk nown Comp Metabolic Mjs355 ANION GAP 9 11/10/2020 Unkn own Comp Metabolic Cwa494 GLUCOSE 105 mg/dL 11/10/2020 Unkn own Comp Metabolic Bnw376 Creat 0.7 mg/dL 11/10/2020 Unkn own Comp Metabolic Xsa778 eGFR 93 ml/min/1.73m2 11/11/19 21 Unknown Comp Metabolic Aro260 BUN 12 mg/dL 11/10/2020 Unkn own Comp Metabolic Qbc746 B/C Ratio 16.9 Ratio 11/10/2020 Unk nown Comp Metabolic Xyp189 CALCIUM 8.7 mg/dL 11/10/2020 Unkn own Comp Metabolic Axe176 ALK PHOS 80 U/L 11/10/2020 Unkn own Comp Metabolic Zdz784 AST(SGOT) 24 U/L 11/10/2020 Unkn own Comp Metabolic Ysx468 ALT(SGPT) 29 U/L 11/10/2020 Unkn own Comp Metabolic Qdp712 BILI T 1.4 mg/dL 11/10/2020 Unkn own Comp Metabolic Irh423 ALBUMIN 3.8 g/dL 11/10/2020 Unkn own Comp Metabolic Emc534 TPRO 6.0 g/dL 11/10/2020 Unkn own Comp Metabolic Xcv131 GLOB 2.2 g/dL 11/10/2020 Unkn own Comp Metabolic Aow092 A/G Ratio 1.7 Ratio 11/10/2020 Unkn own Comp Metabolic Lsl144 Osmo 274 mOsmo 11/10/2020 Unkn own Free T4 Uur619 FREE T4 1.31 ng/dL 11/10/2020 Unknown Lipid [...] 05/04/20 19 Unknown Cbc With Differential Ord2 Desha% 5.5 % 05/04/20 19 Unknown Cbc With [...] K/ul 019 Unknown Cbc With Differential Ord2 Desha ABS# 0.3 K/ul 05/04/20 19 Unknown Cbc With Differential Ord2 Eos ABS# 0.2 K/ul 05/04/20 19 Unknown Cbc With Differential Ord2 Baso ABS# 0.0 K/ul 05/04/20 19 Unknown Tsh Ord6 TSH (3rd IS) 6.35 uIU/mL 05/04/2019 Unkn own Comp Metabolic Jwf881 NA 140 mEq/L 05/04/2019 Unkn own Comp Metabolic Yon192 K 3.6 mEq/L 05/04/2019 Unkn own Comp Metabolic Mpd309 CL 105 mEq/L 05/04/2019 Unkn own Comp Metabolic Trc120 CO2 27.0 mEq/L 05/04/2019 Unk nown Comp Metabolic Soa973 ANION GAP 12 05/04/2019 Unkn own Comp Metabolic Igg985 GLUCOSE 97 mg/dL 05/04/2019 Unkn own Comp Metabolic Svd413 Creat 0.7 mg/dL 05/04/2019 Unkn own Comp Metabolic Oft580 eGFR 90 ml/min/1.73m2 05/04/20 19 Unknown Comp Metabolic Vmy078 BUN 9 mg/dL 05/04/2019 Unkn own Comp Metabolic Wud477 B/C Ratio 12.3 Ratio 05/04/2019 Unk nown Comp Metabolic Qlr266 CALCIUM 8.6 mg/dL 05/04/2019 Unkn own Comp Metabolic Chc755 ALK PHOS 67 U/L 05/04/2019 Unkn own Comp Metabolic Twl165 AST(SGOT) 14 U/L 05/04/2019 Unkn own Comp Metabolic Gir248 ALT(SGPT) 13 U/L 05/04/2019 Unkn own Comp Metabolic Hza697 BILI T 1.4 mg/dL 05/04/2019 Unkn own Comp Metabolic Kwx996 ALBUMIN 3.7 g/dL 05/04/2019 Unkn own Comp Metabolic Zlt954 TPRO 5.9 g/dL 05/04/2019 Unkn own Comp Metabolic Mjs305 GLOB 2.2 g/dL 05/04/2019 Unkn own Comp Metabolic Ywt815 A/G Ratio 1.7 Ratio 05/04/2019 Unkn own Comp Metabolic Afq853 Osmo 278 mOsmo 05/04/2019 Unkn own Free T4 Iju216 FREE T4 0.77 ng/dL 05/04/2019 Unknown Procedures Procedure Codes Date SARSCOV CORONAVIRUS AG IA CPT-4: 67416 12/15/2020 TRIAMCINOLONE ACET INJ NOS 10 mg CPT-4: J3301 019 Vital Signs Date Vital 02/20/2021 Blood Pressure 1: 128/80 Code: 8480-6 BMI: 34.6 Code: 25732-6 Heart Rate 1: 76 bpm Height: 5'5" Code: 8302-2 SpO2: 96% Temperature: 3 6.4 (C) / 97.6 (F) Weight: 208 lbs Code: 10290-1 12/15/2020 Height: Code: 8302-2 Weight: Code: 294 63-7 11/12/2020 Blood Pressure 1: 128/70 Code: 8480-6 BMI: 33.9 Code: 63285-9 Heart Rate 1: 83 bpm Height: 5'5" Code: 8302-2 SpO2: 100% Temperature: 3 6.2 (C) / 97.2 (F) Weight: 204 lbs Code: 64613-7 12/10/2019 Blood Pressure 1: 130/80 Code: 8480-6 BMI: 33.3 Code: 72054-4 Heart Rate 1: 76 bpm Height: 5'5" Code: 8302-2 SpO2: 99% Temperature: 3 6.5 (C) / 97.7 (F) Weight: 200 lbs Code: 64560-7 07/20/2019 Blood Pressure 1: 116/70 Code: 8480-6 Heart Rate 1: 78 bpm Height: Code: 8302-2 SpO2: 98% Weight: Code: 01402-3 05/18/2019 Blood Pressure 1: 122/80 Code: 8480-6 BMI: 33.4 Code: 41967-2 Heart Rate 1: 76 bpm Height: 5'5" Code: 8302-2 SpO2: 98% Weight: 201 lb s Code: 52609-8 05/04/2019 Blood Pressure 1: 108/60 Code: 8480-6 BMI: 33.4 Code: 11390-7 Heart Rate 1: 80 bpm Height: 5'5" Code: 8302-2 SpO2: 99% Weight: 201 lb s Code: 91301-6 10/30/2018 Blood Pressure 1: 128/70 Code: 8480-6 BMI: 31.1 Code: 29879-7 Heart Rate 1: 74 bpm Height: 5'6" Code: 8302-2 Respiratory Rate: bpm SpO2: 96% Weight: 190 lbs Code: 97519-6 09/04/2018 Blood Pressure 1: 124/86 Code: 8480-6 BMI: 31.1 Code: 70088-0 Heart Rate 1: 88 bpm Height: 5'6" Code: 8302-2 SpO2: 97% Weight: 190 lb s Code: 39190-7 Functional Status No Functional Status data Reason For Visit Reason For Visit Effective Dates Notes hypothyroid 02/20/2021 cough 12/15/2020 hypothyroid 11/12/2020 rash 12/10/2019 dysphagia 07/20/2019 chest pain/pressure 05/18/2019 joint complaint 05/04/2019 menstrual irregularity 10/30/2018 menstrual irregularity 09/04/2018 Encounters Encounter Performer Location Codes Date ([id number]) 17503 EST. PATIENT, LEVEL III Diagnosis: Hypothyroidism, unspecified[ICD10: E03.9] [facility] CPT-4: 52588 02/20/2021 [id number]) 86647 EST. PATIENT, LEVEL III Diagnosis: Cough[ICD10: R05] Diagnosis: COVID-19[ICD10: U07.1] [facility] CPT -4: 58749 12/15/2020 ([id number]) 95816 EST. PATIENT, LEVEL III Diagnosis: Dysphagia, oral phase[ICD10: R13.11] Diagnosis: Other specified hypothyroidism[ICD10: E03.8] Neida Lopez MD, [facility] CPT-4: 50572 11/12/2020 86347 EST. PATIENT, LEVEL III Diagnosis: Rash and other nonspecific skin eruption[ICD10: R21] Neida Lopez MD, [facility] CPT-4: 07730 12/10/2019 ([id number]) 62074 EST. PATIENT, LEVEL III Diagnosis: Dysphagia, oral phase[ICD10: R13.11] Flores Lopez MD, [facility] CPT-4: 14624 07/20/2019 ([id number]) 69283 EST. PATIENT, LEVEL IV Diagnosis: Hypothyroidism, unspecified[ICD10: E03.9] Diagnosis: Chest pain made worse by breathing[ICD10: R07.1] Flores Lopez MD, [facility] CPT-4: 56523 05/18/2019 ([id number]) PREV VISIT EST AGE 40-64 Diagnosis: Well adult health check[ICD10: Z00.00] Diagnosis: Iliotibial band syndrome, right leg[ICD10: M76.31] Flores Lopez MD, [facility] CPT-4: 87547 05/04/2019 ([id number]) 45924 EST. PATIENT, LEVEL III Diagnosis: Excessive and frequent menstruation with regular cycle[ICD10: N92.0] Diagnosis: Hypothyroidism, unspecified[ICD10: E03.9] Diagnosis: Unspecified jaundice[ICD10: R17] Flores suarez MD, [facility] CPT-4: 99166 10/30/2018 OFFICE VISIT, NEW - LEVEL 4 Diagnosis: Hypothyroidism, unspecified[ICD10: E03.9] Diagnosis: Unspecified jaundice[ICD10: R17] Diagnosis: Excessive and frequent menstruation with regular cycle[ICD10: N92.0] Diagnosis: Melena[ICD10: K92.1] Diagnosis: Rash and other nonspecific skin eruption[ICD10: R21] Flores Lopez MD, [facility] CPT-4: 26049 09/04/2018 Plan of Care Planned Activity Notes [...] Thyroid US- No PA needed. Ref number [id number] 02/20/2021 Appointment: Flores Neal WPtel: [phone] [place] (15 min) Moderate 02/20/2021 Patient [...] they worsen. 12/15/2020 Appointment: Flores Neal WPtel: [address] [place], [place] [phone] Telehealth 12/15/2020 Patient Education: Patient Medication Summary [...] as indicated 11/12/2020 Appointment: Neida Trujillo WPtel: [facility] [place] (30 min) Complex 11/12/2020 Patient Education: Patient Medication Summary Completed 11/12/2020 Patient Education: Patient Medication Summary Completed 11/05/2020 Appointment: Neida Trujillo WPtel: [facility] [facility] 04/17/2020 Appointment: Neida Trujillo WPtel: [facility] [place] (30 min) Complex 01/10/2020 Visit Plan: Rash - intermittent and ongo ing - The patient was instructed in appropriate wound care. The patient was instructed to use the ointment as per RX. The patient is to call for any change in symptoms, increase in size of the lesion, increase in pain, worsening redness, warmth, discharge. 12/10/2019 Appointment: Neida Trujillo WPtel: [phone] [facility] (30 min) Complex 12/10/2019 Patient Education: Patient Medication Summary Completed 12/10/2019 Visit Plan: Dysphagia- start PPI daily- refer for EGD 07/20/2019 Appointment: Flores Neal WPtel: [phone] [phone] (30 min) Complex 07/20/2019 Patient Education: [...] cardiology. 05/18/2019 Appointment: Flores Neal WPtel: [phone] [phone] (15 min) Moderate 05/18/2019 Patient Education: [...] band exercises. 05/04/2019 Appointment: Flores Neal WPtel: [phone] [phone] [place] (30 min) Complex 05/04/2019 Patient Education: Patient Medication Summary Completed 05/04/2019 Patient Education: .Amazing charts lliotibial Band Rehabilitatio n exercises Completed 05/04/2019 Visit Plan: Heavy periods -patient to [facility] hysterectomy with Dr Talbot Elevated billirubin -liver ultrasound is negative -continue to monitor labs Hypothyroidism -have recent labs faxed to our office 10/30/2018 Appointment: Flores Neal WPtel: [phone] [phone] [place] (30 min) Complex 10/30/2018 Patient [...] for evaluation 09/04/2018 Appointment: Flores Neal WPtel[phone] [place] New Patient 09/04/2018 Patient Education: Patient [...] Thyroid US- No PA needed. Ref number; [id number] . COVID-19 positive Discussed treatment with patient [...]
--- OUTSIDE RECORDS SUMMARY | 2021-04-13 07:16 | XMS REPORT | CCD ---
Author Author Margaret Neal Organization Felicita Lopez MD, [facility] Address [facility] [place] [address] Phone Care Team Providers Care Functional Manager Name Role Phone Felicita Lopez PP Unavailable CCM Unavailable Summary Purpose Interface Exchange Insurance Providers Payer name Policy type / Coverage type Covered alliance party ID Effective Begin Date Effective End Date [place] [facility] [id number] Unknown Family history Mother Diagnosis Age At Onset Hypertension Unknown Hyperlipidemia Unknown Brother Diagnosis Age At Onset Hyperlipidemia Unknown Hypertension Unknown Father Diagnosis Age At Onset Diabetes mellitus Type 2 Unknown Hypertension Unknown Hyperlipidemia Unknown Cancer Unknown Social History Social History Element Codes Description Effective Dates Marital status Unknown Merrel 09/04/2018 Number of children Unknown 3 09/04/2018 Employment Unknown 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/[address]: 0990363 Former smoker 02-28-2014 09/04/[address]: 065018219 Never drinks alcohol 2018 Allergies, Adverse Reactions, [...] Ventolin HFA 90 mcg/actuation aerosol inhaler RxNorm: 445474 Take 1-2 Puff(s) Inhalation Every 4 hrs as needed 12/15/2020 No Stop Date Active prednisone 20 mg tablet RxNorm: 888767 Take 1 Tablet(s) Oral tw o times a day 12/15/2020 12/19/2020 Inactive levothyroxine 88 mcg tablet RxNorm: 148199 Take 1 Tablet(s) Ora l every day 11/12/2020 11/06/2021 Active levothyroxine 100 mcg tablet RxNorm: 409598 Take 1 tablet by mo [facility] once daily 05/12/2020 02/19/2021 Inactive levothyroxine 100 mcg tablet RxNorm: 640600 1 Tablet(s) Oral ev janie day 01/07/2020 05/06/2020 Inactive ketoconazole 2 % topical cream RxNorm: 521682 1 Applica tion Topical two times a day 12/10/2019 No Stop Date Active levothyroxine 100 mcg tablet RxNorm: 814389 1 Tablet(s) Oral ev janie day 05/18/2019 11/14/2019 Inactive prednisone 20 mg tablet RxNorm: 045472 2 Tablet(s) Oral every day 1 07/19/2018 05/23/2019 Inactive betamethasone, augmented 0.05 % topical cream RxNorm: 370272 1 Application TOP BID 09/04/2018 09/17/2018 Inactive Kenalog 40 mg/mL suspension for injection RxNorm: 6936058 Millil iter(s) Inj 09/04/2018 09/04/2018 Inactive metoprolol succinate ER 25 mg tablet,extended release 24 hr RxNorm: 848244 1 Tablet(s) PO daily as needed 09/04/2018 Active Advil 200 mg tablet RxNorm: 962130 1 Tablet(s) PO BID 09/04/2018 Active levothyroxine 88 mcg tablet RxNorm: 777090 1 Tablet(s) PO daily 05/17/2019 Inactive Medication Administered Medication Codes Instructions Start Date Status Kenalog 40 mg/mL suspension for injection RxNorm: 4440317 Millilite r 09/04/2018 No longer Active Immunizations Vaccine Codes Date Status Covid-19 CVX: 213 11/07/2020 Results Observation Observation Code Item Item Code Result Date S ervice Location Cbc With Differential Ord2 WBC 5.32 K/ul [...] 11/11/19 21 Unknown Cbc With Differential Ord2 [facility]% 10.5 % 11/11/19 21 Unknown Cbc With [...] K/ul 021 Unknown Cbc With Differential Ord2 [place] ABS# 0.6 K/ul 11/11/19 21 Unknown Cbc With Differential Ord2 Eos ABS# 0.2 K/ul 11/11/19 21 Unknown Cbc With Differential Ord2 Baso ABS# 0.0 K/ul 11/11/19 21 Unknown Tsh Ord6 TSH (3rd IS) 0.02 uIU/mL 11/10/2020 Unkn own Comp Metabolic Lqx981 NA 137 mEq/L 11/10/2020 Unkn own Comp Metabolic Ajt331 K 3.8 mEq/L 11/10/2020 Unkn own Comp Metabolic Hia156 CL 102 mEq/L 11/10/2020 Unkn own Comp Metabolic Gkx361 CO2 30.0 mEq/L 11/10/2020 Unk nown Comp Metabolic Ksw191 ANION GAP 9 11/10/2020 Unkn own Comp Metabolic Rev098 GLUCOSE 105 mg/dL 11/10/2020 Unkn own Comp Metabolic Dkv246 Creat 0.7 mg/dL 11/10/2020 Unkn own Comp Metabolic Nqr672 eGFR 93 ml/min/1.73m2 11/11/19 21 Unknown Comp Metabolic Cex781 BUN 12 mg/dL 11/10/2020 Unkn own Comp Metabolic Jfq539 B/C Ratio 16.9 Ratio 11/10/2020 Unk nown Comp Metabolic Ynj041 CALCIUM 8.7 mg/dL 11/10/2020 Unkn own Comp Metabolic Ffr245 ALK PHOS 80 U/L 11/10/2020 Unkn own Comp Metabolic Isp736 AST(SGOT) 24 U/L 11/10/2020 Unkn own Comp Metabolic Lix113 ALT(SGPT) 29 U/L 11/10/2020 Unkn own Comp Metabolic Gkh078 BILI T 1.4 mg/dL 11/10/2020 Unkn own Comp Metabolic Pua490 ALBUMIN 3.8 g/dL 11/10/2020 Unkn own Comp Metabolic Zmo466 TPRO 6.0 g/dL 11/10/2020 Unkn own Comp Metabolic Rzr908 GLOB 2.2 g/dL 11/10/2020 Unkn own Comp Metabolic Xrw206 A/G Ratio 1.7 Ratio 11/10/2020 Unkn own Comp Metabolic Kls406 Osmo 274 mOsmo 11/10/2020 Unkn own Free T4 Qbm800 FREE T4 1.31 ng/dL 11/10/2020 Unknown Lipid [...] 05/04/20 19 Unknown Cbc With Differential Ord2 Foster% 5.5 % 05/04/20 19 Unknown Cbc With [...] K/ul 019 Unknown Cbc With Differential Ord2 [place] ABS# 0.3 K/ul 05/04/20 19 Unknown Cbc With Differential Ord2 Eos ABS# 0.2 K/ul 05/04/20 19 Unknown Cbc With Differential Ord2 Baso ABS# 0.0 K/ul 05/04/20 19 Unknown Tsh Ord6 TSH (3rd IS) 6.35 uIU/mL 05/04/2019 Unkn own Comp Metabolic Mpr115 NA 140 mEq/L 05/04/2019 Unkn own Comp Metabolic Ypu209 K 3.6 mEq/L 05/04/2019 Unkn own Comp Metabolic Vym758 CL 105 mEq/L 05/04/2019 Unkn own Comp Metabolic Zjy458 CO2 27.0 mEq/L 05/04/2019 Unk nown Comp Metabolic Kue241 ANION GAP 12 05/04/2019 Unkn own Comp Metabolic Tuh120 GLUCOSE 97 mg/dL 05/04/2019 Unkn own Comp Metabolic Fft740 Creat 0.7 mg/dL 05/04/2019 Unkn own Comp Metabolic Gon830 eGFR 90 ml/min/1.73m2 05/04/20 19 Unknown Comp Metabolic Grp477 BUN 9 mg/dL 05/04/2019 Unkn own Comp Metabolic Nuh207 B/C Ratio 12.3 Ratio 05/04/2019 Unk nown Comp Metabolic Qol851 CALCIUM 8.6 mg/dL 05/04/2019 Unkn own Comp Metabolic Ymw110 ALK PHOS 67 U/L 05/04/2019 Unkn own Comp Metabolic Xag051 AST(SGOT) 14 U/L 05/04/2019 Unkn own Comp Metabolic Isx897 ALT(SGPT) 13 U/L 05/04/2019 Unkn own Comp Metabolic Jzq454 BILI T 1.4 mg/dL 05/04/2019 Unkn own Comp Metabolic Khx276 ALBUMIN 3.7 g/dL 05/04/2019 Unkn own Comp Metabolic Myc311 TPRO 5.9 g/dL 05/04/2019 Unkn own Comp Metabolic Wgx231 GLOB 2.2 g/dL 05/04/2019 Unkn own Comp Metabolic Foc026 A/G Ratio 1.7 Ratio 05/04/2019 Unkn own Comp Metabolic Xyq526 Osmo 278 mOsmo 05/04/2019 Unkn own Free T4 Qxp949 FREE T4 0.77 ng/dL 05/04/2019 Unknown Procedures Procedure Codes Date SARSCOV CORONAVIRUS AG IA CPT-4: 08010 12/15/2020 TRIAMCINOLONE ACET INJ NOS 10 mg CPT-4: J3301 019 Vital Signs Date Vital 02/20/2021 Blood Pressure 1: 128/80 Code: 8480-6 BMI: 34.6 Code: 06288-7 Heart Rate 1: 76 bpm Height: 5'5" Code: 8302-2 SpO2: 96% Temperature: 3 6.4 (C) / 97.6 (F) Weight: 208 lbs Code: 68080-7 12/15/2020 Height: Code: 8302-2 Weight: Code: 294 63-7 11/12/2020 Blood Pressure 1: 128/70 Code: 8480-6 BMI: 33.9 Code: 06539-5 Heart Rate 1: 83 bpm Height: 5'5" Code: 8302-2 SpO2: 100% Temperature: 3 6.2 (C) / 97.2 (F) Weight: 204 lbs Code: 25997-4 12/10/2019 Blood Pressure 1: 130/80 Code: 8480-6 BMI: 33.3 Code: 20624-1 Heart Rate 1: 76 bpm Height: 5'5" Code: 8302-2 SpO2: 99% Temperature: 3 6.5 (C) / 97.7 (F) Weight: 200 lbs Code: 08398-0 07/20/2019 Blood Pressure 1: 116/70 Code: 8480-6 Heart Rate 1: 78 bpm Height: Code: 8302-2 SpO2: 98% Weight: Code: 36641-4 05/18/2019 Blood Pressure 1: 122/80 Code: 8480-6 BMI: 33.4 Code: 13840-9 Heart Rate 1: 76 bpm Height: 5'5" Code: 8302-2 SpO2: 98% Weight: 201 lb s Code: 11197-5 05/04/2019 Blood Pressure 1: 108/60 Code: 8480-6 BMI: 33.4 Code: 19855-0 Heart Rate 1: 80 bpm Height: 5'5" Code: 8302-2 SpO2: 99% Weight: 201 lb s Code: 75439-7 10/30/2018 Blood Pressure 1: 128/70 Code: 8480-6 BMI: 31.1 Code: 12985-0 Heart Rate 1: 74 bpm Height: 5'6" Code: 8302-2 Respiratory Rate: bpm SpO2: 96% Weight: 190 lbs Code: 08903-8 09/04/2018 Blood Pressure 1: 124/86 Code: 8480-6 BMI: 31.1 Code: 76062-3 Heart Rate 1: 88 bpm Height: 5'6" Code: 8302-2 SpO2: 97% Weight: 190 lb s Code: 89575-3 Functional Status No Functional Status data Reason For Visit Reason For Visit Effective Dates Notes hypothyroid 02/20/2021 cough 12/15/2020 hypothyroid 11/12/2020 rash 12/10/2019 dysphagia 07/20/2019 chest pain/pressure 05/18/2019 joint complaint 05/04/2019 menstrual irregularity 10/30/2018 menstrual irregularity 09/04/2018 Encounters Encounter Performer Location Codes Date ([id number]) [id number] EST. PATIENT, LEVEL III Diagnosis: Hypothyroidism, unspecified[ICD10: E03.9] Flores Lopez MD, [facility] CPT-4: 81409 02/20/2021 ([id number]) 28575 EST. PATIENT, LEVEL III Diagnosis: Cough[ICD10: R05] Diagnosis: COVID-19[ICD10: U07.1] Flores Lopez MD, [facility] CPT -4: 96895 12/15/2020 ([id number]) 53660 EST. PATIENT, LEVEL III Diagnosis: Dysphagia, oral phase[ICD10: R13.11] Diagnosis: Other specified hypothyroidism[ICD10: E03.8] Neida Lopez MD, [facility] CPT-4: 62971 11/12/2020 53715 EST. PATIENT, LEVEL III Diagnosis: Rash and other nonspecific skin eruption[ICD10: R21] Neida Lopez MD, [facility] CPT-4: 80632 12/10/2019 ([id number]) 57159 EST. PATIENT, LEVEL III Diagnosis: Dysphagia, oral phase[ICD10: R13.11] Flores Lopez MD, [facility] CPT-4: 94491 07/20/2019 ([id number]) 62165 EST. PATIENT, LEVEL IV Diagnosis: Hypothyroidism, unspecified[ICD10: E03.9] Diagnosis: Chest pain made worse by breathing[ICD10: R07.1] Flores Lopez MD, [facility] CPT-4: 43245 05/18/2019 ([id number]) PREV VISIT EST AGE 40-64 Diagnosis: Well adult health check[ICD10: Z00.00] Diagnosis: Iliotibial band syndrome, right leg[ICD10: M76.31] Flores Lopez MD, [facility] CPT-4: 12813 05/04/2019 ([id number]) 97627 EST. PATIENT, LEVEL III Diagnosis: Excessive and frequent menstruation with regular cycle[ICD10: N92.0] Diagnosis: Hypothyroidism, unspecified[ICD10: E03.9] Diagnosis: Unspecified jaundice[ICD10: R17] [facility] CPT-4: 00721 10/30/2018 OFFICE VISIT, NEW - LEVEL 4 Diagnosis: Hypothyroidism, unspecified[ICD10: E03.9] Diagnosis: Unspecified jaundice[ICD10: R17] Diagnosis: Excessive and frequent menstruation with regular cycle[ICD10: N92.0] Diagnosis: Melena[ICD10: K92.1] Diagnosis: Rash and other nonspecific skin eruption[ICD10: R21] [facility] CPT-4: 49608 09/04/2018 Plan of Care Planned Activity Notes [...] of control. Schedule thyroid ultrasound for evaluation 02/20/2021 Patient Education: Patient Medication Summary Completed 02/20/2021 Care Plan: Cbc With Differential Pending 02/20/2021 Care Plan: Comp Metabolic Pending Care Plan: Lipid Pending 02/20/2021 Care Plan: Tsh Pending 02/20/2021 Care Plan: Free T4 Pending Visit Plan: COVID-19 positive Discussed treatment with patient - pt to start on Vitamin C 500mg daily Zinc 50mg daily Pepcid 20mg twice daily RX for albuterol inhaler or neb to be sent out for patient. PT to call us to let us know if symptoms do not improve or if they worsen. 12/15/2020 [facility] [phone] [phone] [facility] 12/15/2020 Patient Education: Patient Medication Summary [...] and treat/refer as indicated 11/12/2020 Appointment: Neida Trujillol: [facility] (30 min) Complex 11/12/2020 Patient Education: Patient Medication Summary Completed 11/12/2020 Patient Education: Patient Medication Summary Completed 11/05/2020 Appointment: Neida Trujillo WPtel: [address] [place], [place] [phone] TeleHealth 04/17/2020 Appointment: Neida Trujillo WPtel: [address] [place], [place] [phone] (30 min) Complex 01/10/2020 Visit Plan: Rash - intermittent and ongo ing - The patient was instructed in appropriate wound care. The patient was instructed to use the ointment as per RX. The patient is to call for any change in symptoms, increase in size of the lesion, increase in pain, worsening redness, warmth, discharge. 12/10/2019 Appointment: Neida Trujillo WPtel: [facility] (30 min) Complex 12/10/2019 Patient Education: Patient Medication Summary Completed 12/10/2019 Visit Plan: Dysphagia- start PPI daily- refer for EGD 07/20/2019 Appointment: Flores Neal WPtel: [phone] [place] (30 min) Complex 07/20/2019 Patient Education: Patient [...] to cardiology. 05/18/2019 Appointment: Flores Neal WPtel: [phone] [place] (15 min) Moderate 05/18/2019 Patient Education: Patient [...] band exercises. 05/04/2019 Appointment: [facility] Neal [facility] [phone] [phone] [place] (30 min) Complex 05/04/2019 Patient Education: Patient Medication Summary Completed 05/04/2019 Patient Education: .Amazing charts lliotibial Band Rehabilitatio n exercises Completed 05/04/2019 Visit Plan: Heavy periods -patient to [facility] ve hysterectomy with Dr Talbot Elevated billirubin -liver ultrasound is negative -continue to monitor labs Hypothyroidism -have recent labs faxed to our office 10/30/2018 Appointment: Flores Neal [facility] [phone] [phone] [place] (30 min) Complex 10/30/2018 Patient Education: [...] for evaluation 09/04/2018 Appointment: [facility] Neal [facility] [phone] [phone] New Patient 09/04/2018 Patient Education: Patient Medication Summary Completed 09/04/2018 Referral: Chantell Sherwood Referral Appointment Requ sebastian Instructions Comment . Hypothyroidism - pt with chronic hypot hyroidism, continue with current medication, will monitor pt for signs or symptoms of lack of adequate supplementation. Pt is to continue with current dose of medication unless directed otherwise. Check labs at regular intervals q 3 months or q 6 months based on previous levels of control. Schedule thyroid ultrasound for evaluation . COVID-19 positive Discussed treatment with patient [...]
[2021-04-13 07:55] VITALS: BP 103/67
--- NOTE | 2021-04-13 08:15 | Progress Note-Pre Operative ---
Pre-Operative Progress Note H&P Reviewed The H&P was reviewed, patient examined and no changes noted. Time Seen by Provider: 08:07 Date H&P Reviewed: Apr 13, 2021 Time H&P Reviewed: 08:07 Pre-Operative Diagnosis: Dysphagia, Screening colonoscopy STERLING MANZANO DO Apr 13, 2021 08:15
[2021-04-13 08:52] VITALS: BP 83/50
--- NOTE | 2021-04-13 08:56 | Progress Note-Post Operative ---
Post-Operative Progess Note Surgeon (s)/Medical Records Clerk (s) Surgeon STERLING MANZANO DO Medical Records Clerk: Kareem Banuelos MSIII Pre-Operative Diagnosis Dysphagia, Screening colonoscopy Post-Operative Diagnosis Esophagitis Gastritis Hiatal Hernia Polyps int hemorrhoids Procedure & Operative Findings Date of Procedure 04/13/21 Procedure Performed/Findings EGD with bx Colonoscopy with snare polypectomy PROCEDURE NOTE: After informed consent was obtained, the patient was brought to the endoscopy suite, placed in bed in left lateral decubitus position. She was administered IV sedation by the FINANCE AND ADMINISTRATION MANAGER who then monitored vitals the entire time, heart rate, blood pressure and pulse ox and the scope was inserted down the mouth through the esophagus into the stomach. On the way down, noted some severe esophagitis, took a picture, pushed into the stomach, pushed past the antrum into the duodenum. Duodenum looked good. Pulled back and did a biopsy of antrum, then retroflexed the scope and did a biopsy of the body of the stomach. While retroflexing saw a large hiatal hernia, took a picture of this and then pulled the scope into the GE junction, took another picture of the hiatal hernia and then did a biopsy of the GE junction. I then elected to do a biopsy of the esophagus. Finally pushed the scope back into the stomach, suctioned all the air out of the stomach. At this point pulled the scope up the esophagus and out the mouth. Switched camera, switched gloves, went down below, started the colonoscopy. Pushed all the way into about 140 cm to get all the way to cecum, noted the appendiceal orifice and then got into the terminal ileum and took a picture. Next, started slowly withdrawing the scope, insufflating to look circumferentially at the romero. Starting in the cecum, up the ascending colon to the hepatic flexure, then down the transverse colon, splenic flexure, into the descending colon, down into the sigmoid and finally into the rectum. Had seen a polyp on the way in and found it here; did a snare polypectomy and saw another polyp I also removed, Finally retroflexed in the rectal vault, saw some minimal internal hemorrhoids and took a picture of this. The patient tolerated the procedure and she recovered in the endoscopy suite. Anesthesia Type IV sedation by FINANCE AND ADMINISTRATION MANAGER Estimated Blood Loss Estimated blood loss (mL): scant Specimens/Packing Specimens Removed antral bx body of stomach bx GE jxn bx esophageal bx rectal polp x 2 DELMAN,STERLING B DO Apr 13, 2021 08:56
[2021-04-13 08:57] VITALS: BP 87/54
--- NOTE | 2021-04-13 08:58 | Endoscopy Discharge Instruct ---
Endo Procedure/Findings Findings 1.: Hiatal Hernia, Gastritis 2.: Elias's Esophagus 3.: Polyp 4.: Internal Hemorrhoids Discharge Instructions - Activity: You might feel a little sleepy until tomorrow. This is due to the m edicine you received to relax you. Until tomorrow, you should: NOT drive a car, operate machinery or power tools. NOT drink any alcoholic beverages. NOT make any important decisions or sign importortant papers. Do not return to work until tomorrow, unless otherwise instructed. Resume previous activities tomorrow. Diet: Start by taking liquids. If you tolerate liquids, advance to solid food. 1.: EGD in 6-8 weeks 2.: Colonscopy in 5 years Notify Physician - If you experience excessive bleeding, unusual abdominal pain, fever, or chest pain, contact your doctor immediately. STERLING MANZANO DO Apr 13, 2021 08:58
[2021-04-13 09:00] VITALS: BP 87/54
--- NOTE | 2021-04-13 09:26 | Anesthesia-General Post-Op ---
MAC Patient Condition Mental Status/LOC: Same as Preop Cardiovascular: Satisfactory Nausea/Vomiting: Absent Respiratory: Satisfactory Pain: Controlled Complications: Absent Post Op Complications Complications None Follow Up Care/Instructions Patient Instructions None needed. Anesthesiology Discharge Order Discharge Order Patient is doing well, no complaints, stable vital signs, no apparent adverse anesthesia problems. POLI HATHAWAY DO Apr 13, 2021 09:26
== END | disposition home or self-care (01) ==
LOC: ENDO 07:12
PROVIDERS: ATTEND Surgery
DX: Z12.11 Encounter for screening for malignant neoplasm of colon (principal); D12.8 Benign neoplasm of rectum; K62.1 Rectal polyp; K20.90 Esophagitis, unspecified without bleeding; K29.70 Gastritis, unspecified, without bleeding; K44.9 Diaphragmatic hernia without obstruction or gangrene; K64.8 Other hemorrhoids; E66.9 Obesity, unspecified; Z79.899 Other long term (current) drug therapy; Z79.890 Hormone replacement therapy; I47.1 Supraventricular tachycardia; Z87.891 Personal history of nicotine dependence; Z68.35 Body mass index [BMI] 35.0-35.9, adult

== ENCOUNTER 2021-11-01 15:44 | Emergency (ER) | payer OTHER, BC ==
[~2021-11-01] VITALS: Ht 167 cm; Wt 87.0 kg
[~2021-11-01 15:44] MED LIST changes: -HURRICAINE EXT TUBE (BENZOCAINE) XX PRN; -LACTATED RINGERS 1,000 ML IV ONE; -LACTATED RINGERS 1,000 ML IV STA; -PROPOFOL INJECTION 50 ML IV ONE
[2021-11-01 16:01] VITALS: BP 123/85
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
[2021-11-01] MEDS ORDERED: CYCL10TA25 PO (17:19)
[2021-11-01] MEDS ORDERED: NAPR500T8 PO (17:19)
== END 2021-11-01 17:28 | disposition home or self-care (01) ==
LOC: EDUNIT# 15:44 → ER 15:45
DX: M25.512 Pain in left shoulder (principal); R51.9 Headache, unspecified; V49.40XA Driver injured in collision with unspecified motor vehicles in traffic accident, initial encounter; W22.11XA Striking against or struck by driver side automobile airbag, initial encounter; Y92.410 Unspecified street and highway as the place of occurrence of the external cause
CPT/HCPCS: 70450; 70486; 73030

== ENCOUNTER 2022-10-19 18:30 | Observation (INO) | payer BC ==
[~2022-10-19] VITALS: Ht 167 cm; Wt 101.1 kg
[~2022-10-19 18:30] MED LIST changes: +CYCL10TA25 PO
[2022-10-19] MEDS: NITROGLYCERIN 0.4 MG SL TABS BTL 25'S SL PRN ×2 (18:45→19:04)
[2022-10-19] MEDS ORDERED: ASPIRIN 81 MG CHEW (CHILDREN'S ASA) PO ONE (18:45)
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
[2022-10-19 18:57] LABS: BASOPHILS % (AUTO) 1 % (0-10); EOSINOPHILS # (AUTO) 0.2 10^3/uL (0.0-0.3); EOSINOPHILS % (AUTO) 3 % (0-10); HEMATOCRIT 37 % (35-52); HEMOGLOBIN 13.1 g/dL (11.5-16.0); LYMPHOCYTES # (AUTO) 1.8 10^3/uL (1.0-4.0); LYMPHOCYTES % (AUTO) 31 % (12-44); MEAN CORPUSCULAR HEMOGLOBIN 30 pg (25-34); MEAN CORPUSCULAR HGB CONC 35 g/dL (32-36); MEAN CORPUSCULAR VOLUME 85 fL (80-99); MEAN PLATELET VOLUME 10.8 fL (9.0-12.2); MONOCYTES # (AUTO) 0.3 10^3/uL (0.0-1.0); MONOCYTES % (AUTO) 6 % (0-12); NEUTROPHILS # (AUTO) 3.6 10^3/uL (1.8-7.8); NEUTROPHILS % (AUTO) 60 % (42-75); PLATELET COUNT 223 10^3/uL (130-400)
[2022-10-19 19:04] LABS: ALBUMIN 4.2 GM/DL (3.2-4.5)
[2022-10-19 19:05] LABS: CHLORIDE 105 MMOL/L (98-107); POTASSIUM 3.6 MMOL/L (3.6-5.0); SODIUM 139 MMOL/L (135-145)
[2022-10-19 19:06] LABS: CALCIUM 9.2 MG/DL (8.5-10.1); PARTIAL THROMBOPLASTIN TIME 30 SEC (24-35); PROTHROMBIN TIME PATIENT 13.8 SEC (12.2-14.7)
[2022-10-19 19:07] LABS: AMYLASE 55 U/L (25-125); GLUCOSE 96 MG/DL (70-105); TOTAL PROTEIN 6.9 GM/DL (6.4-8.2)
[2022-10-19 19:08] LABS: CARBON DIOXIDE 24 MMOL/L (21-32)
[2022-10-19 19:09] LABS: BILIRUBIN,TOTAL 2.7 MG/DL (0.1-1.0)
[2022-10-19 19:10] LABS: ALKALINE PHOSPHATASE 88 U/L (40-136)
[2022-10-19 19:11] LABS: CREATININE SERUM 0.83 MG/DL (0.60-1.30); GFR ESTIMATED 85
[2022-10-19 19:12] LABS: BUN/CREATININE RATIO 10
[2022-10-19 19:14] LABS: ALANINE AMINOTRANSFERASE 34 U/L (0-55)
[2022-10-19 19:15] LABS: CREATINE KINASE 119 U/L (29-168); LIPASE 18 U/L (8-78)
[2022-10-19 19:22] LABS: CREATINE KINASE MB 1.4 NG/ML (<6.6)
--- NOTE | 2022-10-19 19:24 | Diagnostic Imaging Report ---
INDICATION: Chest pain COMPARISON: 06/18/2020 TECHNIQUE: Single radiograph of the chest dated 10/19/2022. FINDINGS: The cardiac silhouette is within normal limits in size. No significant pulmonary vascular congestion. The lungs are clear of focal pulmonary opacity. No pleural effusion. No pneumothorax. No acute osseous abnormality. IMPRESSION: Stable examination without acute cardiopulmonary abnormality. Dictated by: Dictated on workstation # [id number]
[2022-10-19 19:38] LABS: FIBRIN DEGRADATION PRODUCTS < 0.27 UG/ML (0.00-0.49)
[2022-10-19] MEDS ORDERED: fentaNYL INJ 100 MCG/2 ML AMP IVP ONE ×2 (19:45→21:00)
[2022-10-19] MEDS ORDERED: NS 100 ML (IVPB) BAG IV ONE (20:00)
[2022-10-19] MEDS ORDERED: IOHEXOL 350 MG/ML 100 ML (OMNIPAQUE 350) VIAL IV ONE (20:00)
--- NOTE | 2022-10-19 20:36 | Diagnostic Imaging Report ---
EXAM: CT angiography chest with intravenous contrast. TECHNIQUE: Axial CT angiographic images of the chest were obtained with intravenous contrast. Coronal and sagittal as well as 3-dimensional reformats were obtained and provided. All CT scans use one or more of the following dose optimizing techniques: automated exposure control, MA and/or KvP adjustment based on patient size and exam type or iterative reconstruction. DATE: October 19, 2022. COMPARISON: Chest radiograph October 19, 2022. INDICATION: 52-year-old female, chest pain. FINDINGS: There is a 4 mm semi-solid right upper lobe pulmonary nodule on axial image 40. There is mild multifocal atelectasis. There is no identified additional pulmonary nodule or lung mass. There is no additional focal airspace consolidation. There is no pneumothorax. There is no pleural effusion. The central airways are patent. There is no identified pulmonary embolus. The main pulmonary artery diameter is within normal limits. The heart is not enlarged. There is no identified pericardial effusion. There are mild atherosclerotic calcifications noted. There is no identified abnormally enlarged mediastinal, hilar, or axillary lymph node which meets CT size criteria for adenopathy. The gallbladder is surgically absent. There is no identified acute bony abnormality. IMPRESSION: CT CHEST. 1. No identified pulmonary embolus or other acute cardiopulmonary abnormality. Dictated by: Dictated on workstation # [id number]
[2022-10-19] MEDS ORDERED: ONDANSETRON 4 MG/2 ML (SDV) Z0FRAN IVP ONE (21:00)
[2022-10-19] MEDS ORDERED: ENOXAPARIN 100 MG/1 ML (LOVENOX) SYR SC ONE (22:15)
[2022-10-19] MEDS ORDERED: NS IV 1000 ML 1,000 ML IV SCH (22:15)
[2022-10-19 23:15] VITALS: BP 106/46
[2022-10-19 23:45] VITALS: BP 118/48
[2022-10-20] VITALS (14 sets, daily range): BP systolic 77–122; BP diastolic 46–72
[2022-10-20] MEDS ORDERED: NITROGLYCERIN 0.4 MG SL TABS BTL 25'S SL PRN (00:45)
[2022-10-20] MEDS ORDERED: ONDANSETRON 4 MG/2 ML (SDV) Z0FRAN IVP PRN (00:45)
[2022-10-20] MEDS ORDERED: morphine INJ 4 MG/ML 1 ML (VIAL/SYRINGE) IV PRN (00:45)
[2022-10-20] MEDS: D5 1/2 NS W/KCL 20 MEQ/L 1,000 ML IV SCH ×2 (00:49→10:52)
[2022-10-20 04:42] LABS: TRIGLYCERIDES 98 MG/DL (<150); VLDL CHOLESTEROL 20 MG/DL (5-40)
[2022-10-20 04:47] LABS: CHOLESTEROL 162 MG/DL (< 200)
[2022-10-20 04:48] LABS: HDL CHOLESTEROL 39 MG/DL (40-60)
--- NOTE | 2022-10-20 05:56 | History & Physical ---
History of Present Illness HPI/Chief Complaint Chief complaint: Atypical chest pain suspicious for ACS HPI: This is a 52-year-old female who presented to the ER with atypical chest pain concerning for ACS. She was admitted restratified by cardiology and will undergo a stress test today. We will restart her home medication. She does report some chest pain remains. Source: patient Exam Limitations: no limitations Date Seen 10/20/22 Time Seen by a Provider: 08:30 Attending Physician Felicita Lopez MD PCP Admitting Physician: Allison Martinez DO Attending Physician: Allison Martinez DO Referring Physician Date of Admission October 19, 2022 at 22:49 Home Medications & Allergies Home Medications Reviewed patient Home Medication Reconciliation performed by pharmacy medication reconciliations digital field service technician and/or nursing. Patients Allergies have been reviewed. Allergies Allergies Coded Allergies acetaminophen (Unverified Allergy, Unknown, vomiting, 10/26/18) doxycycline (Verified Allergy, Unknown, Rash, 10/26/18) Past Pkmelsr-Mqknzn-Aoplxt Hx Past Med/Social Hx: Reviewed Nursing Past Med/Soc Hx, Reviewed and Corrections made Patient Social History Marrital Status: single Employed/Student: employed Alcohol Use: Denies Use Smoking Status: Former Smoker Former Smoker, Quit: Dec 28, 2013 Type Used: Cigarettes 2nd Hand Smoke Exposure: No Recent Hopitalizations: No Immunizations Up To Date Tetanus Booster (TDap): More than 5yrs Pediatric: Yes Seasonal Allergies Seasonal Allergies: No Past Medical History Surgeries: Abdominal, Appendectomy, Gallbladder, Hysterectomy, Oophorectomy Cardiac: Palpitations Reproductive: Yes Female Reproductive Disorders: Menstrual Problems, Ovarian Cyst Hysterectomy, Menopausal Endocrine: Hypothyroidsim History of Blood Disorders: Yes (anemia) Family History Diabetes mellitus 19 FATHER G8 BROTHER FH: prostate cancer 19 FATHER Hypertension 19 FATHER 19 MOTHER Pros SOCIAL HISTORY: -SMOKED 1/2 PPD, QUIT 8 YEARS AGO -ETOH--HISTORY OF HEAVY USE, NOW OCCASIONAL USE -DRUGS --HISTORY OF THC, ACID USE, NONE FOR YEARS. Review of Systems Constitutional: see HPI Cardiovascular: chest pain Physical Exam Physical Exam Vital Signs Vital Signs - First Documented 10/19/22 10/20/22 18:33 01:20 Temp 35.4 Pulse 81 Resp 18 B/P (MAP) 120/82 (95) Pulse Ox 96 O2 Delivery Room Air O2 Flow Rate 2.00 Capillary Refill : Less Than 3 Seconds Height, Weight, BMI Height: 5'5.50" Weight: 189lbs. 0.0oz. [id number]; 36.25 BMI Method:Stated General Appearance: No Apparent Distress, WD/WN HEENT: PERRL/EOMI; No Pale Conjunctivae (L), No Pale Conjunctivae (R), No Scleral Icterus (L), No Scleral Icterus (R) Neck: Normal Inspection; No Carotid Bruit, No JVD Respiratory: Chest Non Tender, Normal Breath Sounds, No Accessory Muscle Use, No Respiratory Distress Cardiovascular: Regular Rate, Rhythm, No Edema, No JVD, No Murmur, Normal Peripheral Pulses Gastrointestinal: Normal Bowel Sounds, Non Tender, Soft Extremity: Normal Capillary Refill, Normal Inspection, Normal Range of Motion, Non Tender, No Calf Tenderness, No Pedal Edema Neurologic/Psychiatric: Alert, Oriented x3, No Motor/Sensory Deficits, Normal 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 Assessment/Plan Admission Diagnosis Assessment: Atypical chest pain Hypothyroidism GERD Plan: Stress test today Appreciate cardiology Admission Status: Observation ALLISON MARTINEZ DO October 20, 2022 05:56
[2022-10-20 08:34] LABS: FREE T4 (FREE THYROXINE) 1.06 NG/DL (0.70-1.48)
[2022-10-20] MEDS ORDERED: ASPIRIN E.C. 81 MG (ECOTRIN) TAB PO SCH (09:00)
[2022-10-20] MEDS ORDERED: PANTOPRAZOLE 40 MG (PROTONIX) VIAL IV SCH (09:00)
--- NOTE | 2022-10-20 09:26 | Consultation-Cardiology ---
HPI-Cardiology Cardiology Consultation Date of Consultation 10/20/22 Date of Admission Time Seen by Provider: 09:24 Indication: Chest pain HPI 52-year-old lady with history of hyperlipidemia, hypertension. Patient started to have chest pain left-sided radiating to the back associated with some shortness of breath. Was waxing and waning. Became worse and came into the emergency room for evaluation. This morning she was feeling better, denied any active chest pain. No palpitation Home Medications & Allergies Allergies: Coded Allergies: acetaminophen (Unverified Allergy, Unknown, vomiting, 10/26/18) doxycycline (Verified Allergy, Unknown, Rash, 10/26/18) Home Medication List Reviewed: Yes [id number] Hx Patient Social History Marital Status: Employed/Student: employed Smoking Status: Former Smoker Type Used: Cigarettes 2nd Hand Smoke Exposure: No Recent Hopitalizations: No Alcohol Use?: No Immunizations Up To Date Tetanus Booster (TDap): More than 5yrs Past Medical History Discussed below Family Medical History Family History: Diabetes mellitus 19 FATHER G8 BROTHER FH: prostate cancer 19 FATHER Hypertension 19 FATHER 19 MOTHER Pros Review of Systems-General Review of Systems Constitutional: no symptoms reported EENTM: see HPI, no symptoms reported Respiratory: no symptoms reported, see HPI Cardiovascular: see HPI, chest pain; No edema, No Hx of Intervention, No palpitations, No syncope, No vascular heart diseas, No other Gastrointestinal: no symptoms reported, see HPI Genitourinary: no symptoms reported, see HPI Musculoskeletal: see HPI Skin: no symptoms reported Psychiatric/Neurological: No Symptoms Reported Reviewed Test Results Reviewed Test Results Lab Laboratory Tests Test 10/19/22 18:45 10/19/22 21:17 10/20/22 03:55 Range/Units White Blood Count 6.0 4.3-11.0 10^3/uL Red Blood Count 4.41 3.80-5.11 10^6/uL Hemoglobin 13.1 11.5-16.0 g/dL Hematocrit 37 35-52 % Mean Corpuscular Volume 85 80-99 fL Mean Corpuscular Hemoglobin 30 25-34 pg Mean Corpuscular Hemoglobin Concent 35 32-36 g/dL Red Cell Distribution Width 12.2 10.0-14.5 % Platelet Count 223 130-400 10^3/uL Mean Platelet Volume 10.8 9.0-12.2 fL Immature Granulocyte % (Auto) 0 % Neutrophils (%) (Auto) 60 42-75 % Lymphocytes (%) (Auto) 31 12-44 % Monocytes (%) (Auto) 6 0-12 % Eosinophils (%) (Auto) 3 0-10 % Basophils (%) (Auto) 1 0-10 % Neutrophils # (Auto) 3.6 1.8-7.8 10^3/uL Lymphocytes # (Auto) 1.8 1.0-4.0 10^3/uL Monocytes # (Auto) 0.3 0.0-1.0 10^3/uL Eosinophils # (Auto) 0.2 0.0-0.3 10^3/uL Basophils # (Auto) 0.0 0.0-0.1 10^3/uL Immature Granulocyte # (Auto) 0.0 0.0-0.1 10^3/uL Prothrombin Time 13.8 12.2-14.7 SEC INR Comment 1.0 0.8-1.4 Activated Partial Thromboplast Time 30 24-35 SEC D-Dimer < 0.27 0.00-0.49 UG/ML Sodium Level 139 135-145 MMOL/L Potassium Level 3.6 3.6-5.0 MMOL/L Chloride Level 105 98-107 MMOL/L Carbon Dioxide Level 24 21-32 MMOL/L Anion Gap 10 5-14 MMOL/L Blood Urea Nitrogen 8 7-18 MG/DL Creatinine 0.83 0.60-1.30 MG/DL Estimat Glomerular Filtration Rate 85 BUN/Creatinine Ratio 10 Glucose Level 96 70-105 MG/DL Calcium Level 9.2 8.5-10.1 MG/DL Corrected Calcium 9.0 8.5-10.1 MG/DL Magnesium Level 2.0 1.6-2.4 MG/DL Total Bilirubin 2.7 H 0.1-1.0 MG/DL Aspartate Amino Transf (AST/SGOT) 26 5-34 U/L Alanine Aminotransferase (ALT/SGPT) 34 0-55 U/L Alkaline Phosphatase 88 40-136 U/L Total Creatine Kinase 119 29-168 U/L Creatine Kinase MB 1.4 <6.6 NG/ML Myoglobin 36.2 10.0-92.0 NG/ML Troponin I < 0.028 < 0.028 < 0.028 <0.028 NG/ML B-Type Natriuretic Peptide 17.0 <100.0 PG/ML Total Protein 6.9 6.4-8.2 GM/DL Albumin 4.2 3.2-4.5 GM/DL Amylase Level 55 25-125 U/L Lipase 18 8-78 U/L Triglycerides Level 98 <150 MG/DL Cholesterol Level 162 < 200 MG/DL LDL Cholesterol Direct 120 1-129 MG/DL VLDL Cholesterol 20 5-40 MG/DL HDL Cholesterol 39 L 40-60 MG/DL Thyroid Stimulating Hormone (TSH) 0.28 L 0.35-4.94 UIU/ML Free Thyroxine 1.06 0.70-1.48 NG/DL Physical Exam Physical Exam Vital Signs Vital Signs - First Documented 10/19/22 10/20/22 18:33 01:20 Temp 35.4 Pulse 81 Resp 18 B/P (MAP) 120/82 (95) Pulse Ox 96 O2 Delivery Room Air O2 Flow Rate 2.00 Capillary Refill : Less Than 3 Seconds Height, Weight, BMI Height: 5'5.50" Weight: 189lbs. 0.0oz. 85.473013ys; 36.25 BMI Method:Stated General Appearance: No Apparent Distress, WD/WN HEENT: PERRL/EOMI; No Pale Conjunctivae (L), No Pale Conjunctivae (R), No Scleral Icterus (L), No Scleral Icterus (R) Neck: Normal Inspection; No Carotid Bruit, No JVD Respiratory: Chest Non Tender, Normal Breath Sounds, No Accessory Muscle Use, No Respiratory Distress Cardiovascular: Regular Rate, Rhythm, No Edema, No JVD, No Murmur, Normal Peripheral Pulses Gastrointestinal: Normal Bowel Sounds, Non Tender, Soft Extremity: Normal Capillary Refill, Normal Inspection, Normal Range of Motion, Non Tender, No Calf Tenderness, No Pedal Edema Neurologic/Psychiatric: Alert, Oriented x3, No Motor/Sensory Deficits, Normal 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 We will evaluate 2D echo Hypertension, monitor blood pressure Hyperlipidemia, intolerant to statin Monitor lipids Hypothyroidism, followed and managed by primary care physician Strong family history of heart disease KADY GOLDSTEIN MD October 20, 2022 09:26
[2022-10-20] MEDS ORDERED: OMEP-401 PO (10:29)
[2022-10-20] MEDS ORDERED: CATHETER FLUSH 10 ML SYR IVP PRN (10:45)
--- NOTE | 2022-10-20 13:29 | Cardiology Stress Test Report ---
Stress Test Report Date of Procedure/Referring: Date of Procedure: October 20, 2022 PCP Art Lopez MD Admitting Physician Admitting Physician: Allison Martinez DO Attending Physician: Allison Martinez DO Indications: CP Baseline Heart Rate: 71 Baseline Blood Pressure: Blood Pressure Systolic: 104 Blood Pressure Diastolic: 65 Vital Signs Date Time Temp Pulse Resp B/P (MAP) Pulse Ox O2 Delivery O2 Flow Rate FiO2 10/19/22 18:33 35.4 81 18 120/82 (95) 96 Room Air 10/20/22 01:20 2.00 Baseline Vital Signs Vital Signs Date Time Temp Pulse Resp B/P (MAP) Pulse Ox O2 Delivery O2 Flow Rate FiO2 10/19/22 18:33 35.4 81 18 120/82 (95) 96 Room Air 10/20/22 01:20 2.00 Baseline EKG: Baseline EKG: NSR Summary: After explaining the procedure and details to the patient, she signed the consent and was brought to the stress nuclear laboratory. Patient exercised on standard Memo protocol, EKG, heart rate and blood pressure were monitored continuously, resting and stress doses of radio tracer were injected, imaging was acquired and reviewed in the short axis, horizontal long axis and vertical long axis views Patient was able to exercise for a total of 7.30 minutes on Memo protocol, METs 8.8 Maximum heart rate 154 Maximum blood pressure 198/82 Stress EKG, Minimal nondiagnostic changes Recovery EKG, Return to baseline TID: 1.03 SSS: 2 SDS: 0 EF: 56 Conclusion: Good exercise tolerance for 7 minutes and 30 seconds on standard Memo protocol, 8.8 METS achieving 91% of maximal expected heart rate Appropriate heart rate response to exercise with hypertensive response to exercise with peak blood pressure 198/82 return to baseline during recovery No ischemia or infarction noted on SPECT images Normal left ventricular size, ejection fraction 56% Copy Copies To 1: ART LOPEZ MD, BASHAR J MD October 20, 2022 13:29
--- NOTE | 2022-10-20 13:36 | Discharge Summary ---
Diagnosis/Chief Complaint Date of Admission October 19, 2022 at 22:49 Date of Discharge Discharge Date: October 20, 2022 Discharge Diagnosis Assessment: Chest pain atypical type suspicious for ACS but stress test normal Hypothyroidism Discharge Summary Discharge Physical Examination Allergies: Coded Allergies: acetaminophen (Unverified Allergy, Unknown, vomiting, 10/26/18) doxycycline (Verified Allergy, Unknown, Rash, 10/26/18) Vitals & I&Os Vital Signs Date Time Temp Pulse Resp B/P (MAP) Pulse Ox O2 Delivery O2 Flow Rate FiO2 10/20/22 14:45 10/20/22 14:00 70 16 98 Room Air 10/20/22 07:00 2.00 10/20/22 04:00 36.2 Hospital Course Was the Problem List Reviewed?: Yes Short course after admitted overnight for atypical chest pain underwent stress test which was normal and cardiology approved for discharge with close follow-up to evaluate source. Labs (last 24 hrs) Laboratory Tests 10/19/22 18:45: White Blood Count 6.0, Red Blood Count 4.41, Hemoglobin 13.1, Hematocrit 37, Mean Corpuscular Volume 85, Mean Corpuscular Hemoglobin 30, Mean Corpuscular Hemoglobin Concent 35, Red Cell Distribution Width 12.2, Platelet Count 223, Mean Platelet Volume 10.8, Immature Granulocyte % (Auto) 0, Neutrophils (%) (Auto) 60, Lymphocytes (%) (Auto) 31, Monocytes (%) (Auto) 6, Eosinophils (%) (Auto) 3, Basophils (%) (Auto) 1, Neutrophils # (Auto) 3.6, Lymphocytes # (Auto) 1.8, Monocytes # (Auto) 0.3, Eosinophils # (Auto) 0.2, Basophils # (Auto) 0.0, Immature Granulocyte # (Auto) 0.0, Prothrombin Time 13.8, INR Comment 1.0, Activated Partial Thromboplast Time 30, D-Dimer < 0.27, Sodium Level 139, Potassium Level 3.6, Chloride Level 105, Carbon Dioxide Level 24, Anion Gap 10, Blood Urea Nitrogen 8, Creatinine 0.83, Estimat Glomerular Filtration Rate 85, BUN/Creatinine Ratio 10, Glucose Level 96, Calcium Level 9.2, Corrected Calcium 9.0, Magnesium Level 2.0, Total Bilirubin 2.7H, Aspartate Amino Transf (AST/SGOT) 26, Alanine Aminotransferase (ALT/SGPT) 34, Alkaline Phosphatase 88, Total Creatine Kinase 119, Creatine Kinase MB 1.4, Myoglobin 36.2, Troponin I < 0.028, B-Type Natriuretic Peptide 17.0, Total Protein 6.9, Albumin 4.2, Amylase Level 55, Lipase 18 10/19/22 21:17: Troponin I < 0.028 10/20/22 03:55: Troponin I < 0.028, Triglycerides Level 98, Cholesterol Level 162, LDL Cholesterol Direct 120, VLDL Cholesterol 20, HDL Cholesterol 39L, Thyroid Stimulating Hormone (TSH) 0.28L, Free Thyroxine 1.06 Pending Labs Laboratory Tests 10/19/22 18:45: White Blood Count 6.0, Red Blood Count 4.41, Hemoglobin 13.1, Hematocrit 37, Mean Corpuscular Volume 85, Mean Corpuscular Hemoglobin 30, Mean Corpuscular Hemoglobin Concent 35, Red Cell Distribution Width 12.2, Platelet Count 223, Mean Platelet Volume 10.8, Immature Granulocyte % (Auto) 0, Neutrophils (%) (Auto) 60, Lymphocytes (%) (Auto) 31, Monocytes (%) (Auto) 6, Eosinophils (%) (Auto) 3, Basophils (%) (Auto) 1, Neutrophils # (Auto) 3.6, Lymphocytes # (Auto) 1.8, Monocytes # (Auto) 0.3, Eosinophils # (Auto) 0.2, Basophils # (Auto) 0.0, Immature Granulocyte # (Auto) 0.0, Prothrombin Time 13.8, INR Comment 1.0, Activated Partial Thromboplast Time 30, D-Dimer < 0.27, Sodium Level 139, Potass ium Level 3.6, Chloride Level 105, Carbon Dioxide Level 24, Anion Gap 10, Blood Urea Nitrogen 8, Creatinine 0.83, Estimat Glomerular Filtration Rate 85, BUN/Creatinine Ratio 10, Glucose Level 96, Calcium Level 9.2, Corrected Calcium 9.0, Magnesium Level 2.0, Total Bilirubin 2.7, Aspartate Amino Transf (AST/SGOT) 26, Alanine Aminotransferase (ALT/SGPT) 34, Alkaline Phosphatase 88, Total Creatine Kinase 119, Creatine Kinase MB 1.4, Myoglobin 36.2, Troponin I < 0.028, B-Type Natriuretic Peptide 17.0, Total Protein 6.9, Albumin 4.2, Amylase Level 55, Lipase 18 10/19/22 21:17: Troponin I < 0.028 10/20/22 03:55: Troponin I < 0.028, Triglycerides Level 98, Cholesterol Level 162, LDL Cholesterol Direct 120, VLDL Cholesterol 20, HDL Cholesterol 39, Thyroid Stimulating Hormone (TSH) 0.28, Free Thyroxine 1.06 Discharge Home Medications: Active Scripts Active Reported Omeprazole 20 Mg Tab.rap.dr 20 Mg PO DAILY PRN Levothyroxine Sodium 88 Mcg Tablet 88 Mcg PO DAILY Instructions to patient/family Please see electronic discharge instructions given to patient. RAQUEL COLON DO October 20, 2022 13:36
== END 2022-10-20 14:45 | disposition home or self-care (01) ==
LOC: EDUNIT# 18:30 → ER 18:31 → ICU 22:49 → INTOOBSV 22:49
PROVIDERS: ADMIT Internal Medicine; ATTEND Internal Medicine
DX: R07.89 Other chest pain (principal); I10 Essential (primary) hypertension; E03.9 Hypothyroidism, unspecified; E78.5 Hyperlipidemia, unspecified; Z87.891 Personal history of nicotine dependence
CPT/HCPCS: 36415; 71045; 71275; 78452; 80053; 80061; 82150; 82550; 82553; 83690; 83735; 83874; 83880; 84439; 84443; 84484; 85025; 85379; 85610; 85730; 93005; 93017; 93041; 93306; 94760; 96375

== ENCOUNTER → 2022-12-10 | Outpatient (CLI) | payer BC ==
[~2022-12-10] MED LIST changes: +OMEP-401 PO
--- NOTE | 2022-12-10 15:00 | Diagnostic Imaging Report ---
INDICATION: Routine screening. COMPARISON: 09/15/2018. TECHNIQUE: 2D and 3D bilateral screening mammography was performed with CAD. FINDINGS: Scattered fibroglandular densities are identified bilaterally. The parenchymal pattern is stable. No mass or malignant-appearing microcalcifications are seen. The axillae are unremarkable. IMPRESSION: No mammographic features suspicious for malignancy are identified. ACR BI-RADS Category 1: Negative. Result letter will be mailed to the patient. Note: At least 10% of breast cancer is not imaged by mammography. Dictated by: Dictated on workstation # [id number]
== END ==
LOC: RAD 15:45
PROVIDERS: ATTEND Physician Assistant
DX: Z12.31 Encounter for screening mammogram for malignant neoplasm of breast (principal)
CPT/HCPCS: 77063; 77067

== ENCOUNTER 2022-12-27 10:50 | Day surgery (SDC) | payer BC ==
[~2022-12-27] VITALS: Ht 167.6 cm; Wt 99.8 kg
[2022-12-27] VITALS (7 sets, daily range): BP systolic 86–124; BP diastolic 50–60
[~2022-12-27 10:50] MED LIST changes: +ESTR1TAB27 PO
[2022-12-27] MEDS ORDERED: LACTATED RINGERS 1,000 ML IV STA (10:53)
[2022-12-27] MEDS ORDERED: HURRICAINE EXT TUBE (BENZOCAINE) XX PRN (11:00)
--- NOTE | 2022-12-27 11:10 | Progress Note-Pre Operative ---
Pre-Operative Progress Note Date of Available H&P: Dec 16, 2022 Date H&P Reviewed: Dec 27, 2022 Time H&P Reviewed: 11:08 History & Physical: H&P Reviewed, Patient Examed, No changes noted Pre-Operative Diagnosis: GERD, Dysphagia STERLING MANZANO DO Dec 27, 2022 11:10
[2022-12-27] MEDS ORDERED: PROPOFOL INJECTION 50 ML IV ONE (11:31)
[2022-12-27] MEDS ORDERED: MIDAZOLAM 2 MG/2 ML (VERSED) VIAL ONE (11:31)
--- NOTE | 2022-12-27 11:47 | Progress Note-Post Operative ---
Post-Operative Progess Note Surgeon (s)/Diving Coach (s) Surgeon STERLING MANZANO DO Diving Coach: none Pre-Operative Diagnosis GERD, Dysphagia Post-Operative Diagnosis Esophagitis Hiatal hernia Procedure & Operative Findings Date of Procedure 12/27/22 Procedure Performed/Findings EGD with biopsy PROCEDURE NOTE: After informed consent was obtained, the patient was brought to the endoscopy suite, placed in bed in left lateral decubitus position. She was administered IV sedation by the METAL FITTER who then monitored vitals the entire time, heart rate, blood pressure and pulse ox and the scope was inserted down the mouth through the esophagus into the stomach. On the way down, noted some mild esophagitis, took a picture, pushed into the stomach, pushed past the antrum into the duodenum. Duodenum looked good. Pulled back and did a biopsy of antrum, then retroflexed the scope, saw a 1cm stage II AFS hiatal hernia, took a picture of this and then pulled the scope into the GE junction, took another picture of the hiatal hernia and then did a biopsy of the GE junction. Pushed the scope back into the stomach, suctioned all the air out of the stomach. At this point pulled the scope up the esophagus and out the mouth. The patient tolerated the procedure, and she recovered in endoscopy suite. Anesthesia Type IV sedation by METAL FITTER Estimated Blood Loss Estimated blood loss (mL): scant Specimens/Packing Specimens Removed antral bx GE jxn bx STERLING MANZANO DO Dec 27, 2022 11:47
--- NOTE | 2022-12-27 11:48 | Endoscopy Discharge Instruct ---
Endo Procedure/Findings Findings 1.: Gastritis 2.: Hiatal Hernia 3.: Other Findings (Esophagitis) Discharge Instructions - Activity: You might feel a little sleepy until tomorrow. This is due to the medicine you received to relax you. Until tomorrow, you should: NOT drive a car, operate machinery or power tools. NOT drink any alcoholic beverages. NOT make any important decisions or sign importortant papers. Do not return to work until tomorrow, unless otherwise instructed. Resume previous activities tomorrow. Diet: Start by taking liquids. If you tolerate liquids, advance to solid food. 1.: EGD in 3 years Notify Physician - If you experience excessive bleeding, unusual abdominal pain, fever, or chest pain, contact your doctor immediately. Follow-Up: Other Follow up in my office in one week STERLING MANZANO DO Dec 27, 2022 11:47
--- NOTE | 2022-12-27 12:11 | Anesthesia-General Post-Op ---
MAC Patient Condition Mental Status/LOC: Same as Preop Cardiovascular: Satisfactory Nausea/Vomiting: Absent Respiratory: Satisfactory Pain: Controlled Complications: Absent Post Op Complications Complications None Follow Up Care/Instructions Patient Instructions None needed. Anesthesiology Discharge Order Discharge Order Patient is doing well, no complaints, stable vital signs, no apparent adverse anesthesia problems. No complications reported per nursing. GIOVANI SANCHEZ CRNA Dec 27, 2022 12:10
--- NOTE | 2022-12-27 12:18 | Anesthesia-General Post-Op ---
MAC Patient Condition Mental Status/LOC: Same as Preop Cardiovascular: Satisfactory Nausea/Vomiting: Absent Respiratory: Satisfactory Pain: Controlled Complications: Absent Post Op Complications Complications None Follow Up Care/Instructions Patient Instructions None needed. Anesthesiology Discharge Order Discharge Order Patient is doing well, no complaints, stable vital signs, no apparent adverse anesthesia problems. No complications reported per nursing. ABBEY CHINCHILLA CRNA Dec 27, 2022 12:18
== END 2022-12-27 12:35 | disposition home or self-care (01) ==
LOC: ENDO 10:50
PROVIDERS: ATTEND Surgery
DX: K21.00 Gastro-esophageal reflux disease with esophagitis, without bleeding (principal); K44.9 Diaphragmatic hernia without obstruction or gangrene; K31.89 Other diseases of stomach and duodenum; Z87.891 Personal history of nicotine dependence; E66.9 Obesity, unspecified; Z68.35 Body mass index [BMI] 35.0-35.9, adult

== ENCOUNTER → 2023-02-28 | Outpatient (CLI) | payer BC ==
--- NOTE | 2023-02-28 19:36 | Diagnostic Imaging Report ---
INDICATION: Globus sensation. The study was performed in conjunction with speech pathology. Video fluoroscopy was performed during the swallowing of barium in multiple consistencies. 44 seconds of fluoroscopic time was utilized. Reference air kerma is 2.4 mGy. The patient ingested thin as well as applesauce, banana and cracker consistencies. The oral phase is unremarkable. There is normal epiglottic tilt and laryngeal elevation. No penetration or aspiration was observed. There was mild vallecular residue during the swallowing of cracker consistency. This did clear with a second swallow. IMPRESSION: Essentially unremarkable modified barium swallow. Dictated by: Dictated on workstation # [id number]
== END ==
LOC: RAD 09:26
PROVIDERS: ATTEND Surgery
DX: R13.10 Dysphagia, unspecified (principal)
CPT/HCPCS: 74230